=== PATIENT | male | born 1975 | race Caucasian/White ===

== ENCOUNTER 2018-05-02 20:49 | Observation (INO) ==
--- NOTE | 2018-05-02 21:33 | Emergency Department Note ---
Disposition Clinical Impression: Periorbital cellulitis Qualifiers: Laterality: right Qualified Code(s): L03.213 - Periorbital cellulitis Disposition: Still a Patient Condition: Good Referrals: NONE,PCP [Primary Care Provider] - Forms: ED Satisfaction Letter Time of Disposition: 22:43 Eye Problem HPI - General Chief complaint: ED Eye Problems Stated complaint: R Eye Irritation Time Seen by Provider: 05/02/18 21:00 Source: patient Mode of arrival: ambulatory Limitations: no limitations Nursing Notes Reviewed: Yes Vital Signs Reviewed: Yes - History of Present Illness HPI Narrative: I have re-performed and reviewed the history documented by the medical student, and I confirm its accuracy except as noted below - Related Data Previous Rx's Medication Instructions Recorded Gentamicin OPTH Soln 1 drop LEFT EYE QID #1 bottle 09/01/16 HYDROcodone/Acet 5/325 mg [[place] 1 tab PO Q6H PRN #14 tab 09/01/16 5-325 mg] Mupirocin [Bactroban Oint] 22 gm TP TID #1 tube 02/25/18 Allergies Allergy/AdvReac Type Severity Reaction Status Date / Time No Known Allergies Allergy Verified 02/25/18 17:58 All systems ED: reviewed and negative except as stated. Constitutional: Denies: fever Eyes: Reports: eye pain Cardiovascular: Denies: chest pain, palpitations Respiratory: Denies: cough, dyspnea Gastrointestinal: Denies: abdominal pain, nausea, vomiting, diarrhea Integumentary: Reports: lesions Neurological: Denies: headache, weakness, numbness, paresthesias Past Medical History - Past Medical History Attestation: Yes The following information was validated with the patient. Source: patient Medical history: Reports: hypertension Psychiatric history: Reports: anxiety - Social History Smoking Status: Current every day smoker Smokeless Tobacco Status: No Alcohol use: Reports: none, occasionally Drug use: Reports: none, IV Drug Use Physical Exam - General Limitations: no limitations General appearance: alert - Head Head exam: atraumatic, normocephalic, normal inspection - Eye Eye exam: Present: PERRL, EOMI, other (Right periorbital edema with central on the medial aspect of the right infraorbital region with about 1 cm diameter induration, fluctuance edema of the lateral infraorbital region. Mild swelling of the upper eyelid. No pain with ocular movement.) - ENT ENT exam: normal exam, normal oropharynx, mucous membranes moist - Neck Neck exam: Present: normal inspection, full ROM, trachea midline. Absent: tenderness - Chest Chest inspection: Present: normal inspection, symmetric chest wall rise - Respiratory Respiratory exam: Present: normal lung sounds bilaterally - Cardiovascular Cardiovascular exam: Present: regular rate, normal rhythm, normal heart sounds - Abdominal Exam Abdominal exam: Present: soft, Non-Tender. Absent: tenderness, distention, guarding, rebound, rigidity - Extremities Exam Extremities exam: Present: full ROM, other (Small 4-5 mm open lesion 6 of the left posterior wrist. No active bleeding or pus drainage. No localized fluctuance or induration.). Absent: tenderness, pedal edema - Neurological Exam Neurological exam: Present: alert, oriented X3, CN II-XII intact. Absent: motor sensory deficit - Psychiatric Psychiatric exam: Present: normal affect, normal mood - Skin Skin exam: Present: warm, dry, intact, normal color Course Course Narrative: We will obtain CT maxillofacial with contrast for further assessment, CBC, BMP, lactic. After results, we will consult ENT for further care and dispo. Vancomycin was started. 22:43 Will sign out patient tonight team for further care and disposition. Pending BMP and CT scan at this time. Vital Signs Temperature 98.3 F 05/02/18 20:50 Pulse Rate 91 05/02/18 20:50 Respiratory Rate 20 05/02/18 20:50 Blood Pressure 137/90 05/02/18 20:50 O2 Sat by Pulse Oximetry 98 05/02/18 20:50 Temperature 98.3 F 05/02/18 21:05 Pulse Rate 91 05/02/18 21:05 Respiratory Rate 20 05/02/18 21:05 Blood Pressure 137/90 05/02/18 21:05 O2 Sat by Pulse Oximetry 98 05/02/18 21:05 Oxygen Delivery Oxygen Delivery Room [facility] - [facility] Narrative Medical decision making narrative: We will obtain CT maxillofacial with contrast for further assessment, CBC, BMP, lactic. After results, we will consult ENT for further care and dispo. Vancomycin was started. 22:43 Will sign out patient tonight team for further care and disposition. Pending BMP and CT scan at this time. - Medical Records Medical records reviewed: Yes I reviewed the patient's medical records. - Lab Data Lab results reviewed: Yes I reviewed the patient's lab results. Result diagrams: 05/02/18 21:20 Lab Results 05/02/18 05/02/18 Range/Units 21:20 22:04 WBC 11.9 H (4.3-11.1) K/mcL RBC 3.98 L (4.19-5.50) M/mcL Hgb 12.0 L (12.9-16.9) g/dL Hct 36.1 L (37.5-50.1) % MCV 90.7 (83.0-100.0) fL MCH 30.2 (28.0-33.3) pg MCHC 33.2 (31.6-35.5) g/dL RDW 13.8 (11.5-14.5) % Plt Count 299 (140-400) K/mcL MPV 10.3 (9.4-12.4) fL Immature Gran % 0.6 (0-4) % Seg Neutrophils % 61.6 % Lymphocytes % 25.3 % Monocytes % 10.4 % Eosinophils % 1.9 % Basophils % 0.2 % Neutrophils # 7.3 (1.6-8.9) K/mcL Lymphocytes # 3.0 (0.6-4.6) K/mcL Monocytes # 1.2 (0.0-1.3) K/mcL Eosinophils # 0.2 (0.0-0.6) K/mcL Basophils # 0.0 (0.0-0.2) K/mcL Lactic Acid 1.0 (0.5-2.2) mmol/L S.B.A.R. - S.B.A.R. Situation: Demographics, MOA Background: Presenting Complaint, Relevant PMH, Meds, & Allergies Assessment: Vital Signs, Course and respsone to treatment, Exam Concerns, Patient/Family Expectation, Pertinant Lab Results, Outstanding Labs Recommendation: Barrier(s) to disposition, Recommendation based on pending studies, treatments, or consults S.B.A.R. Report Given to: Dr Banda, Dr. Mccormack
[2018-05-02] MEDS ORDERED: Isovue-370 500 ML INFUS..BTL IV ONE (21:39)
--- NOTE | 2018-05-02 21:46 | Emergency Department Note ---
Disposition Clinical Impression: Periorbital cellulitis Disposition: Still a Patient Referrals: NONE,PCP [Primary Care Provider] - Forms: ED Satisfaction Letter Eye Problem HPI - General Chief complaint: ED Eye Problems Stated complaint: R Eye Irritation Time Seen by Provider: 05/02/18 21:00 Source: patient Mode of arrival: ambulatory Limitations: no limitations - History of Present Illness HPI Narrative: 42yo male with history of HTN and IDRU presents with R cheek and eye swelling. Pt states yesterday he had a small pimple that he popped and yellow pus came out. Today when he awoke, noted some swelling but in the last few hours it had gradually gotten worse. It is painful around his cheek but no pain within the eye. No pain with movement and no drainage today. 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 He proceed to shave his wrists which then produced more "pimples" in which he popped and contributed to more open wounds. No history of MRSA or abscess. Denies recent IVDU, completed rehab in the past. Denies nausea, vomiting, fevers, chills. - Related Data Previous Rx's Medication Instructions Recorded Gentamicin OPTH Soln 1 drop LEFT EYE QID #1 bottle 09/01/16 HYDROcodone/Acet 5/325 mg [[place] 1 tab PO Q6H PRN #14 tab 09/01/16 5-325 mg] Mupirocin [Bactroban Oint] 22 gm TP TID #1 tube 02/25/18 Allergies Allergy/AdvReac Type Severity Reaction Status Date / Time No Known Allergies Allergy Verified 02/25/18 17:58 Review of Systems: As Per HPI Constitutional: Denies: fever, chills Eyes: Reports: eye pain (cheek pain, no pain within the eye). Denies: vision change Gastrointestinal: Denies: abdominal pain, nausea, vomiting Genitourinary: Denies: urgency, dysuria, frequency Allergic/Immunologic: Reports: facial swelling Past Medical History - Past Medical History Medical history: Reports: hypertension Psychiatric history: Reports: anxiety - Social History Smoking Status: Current every day smoker Smokeless Tobacco Status: No Alcohol use: Reports: none, occasionally Drug use: Reports: none, IV Drug Use Physical Exam - General Limitations: no limitations General appearance: alert - Head Head exam: atraumatic, normocephalic - Eye Eye exam: Present: periorbital swelling (preseptal.), periorbital tenderness, other (swelling and induration over R cheack. small area of erythema where "pimple" was. Not draining) - Respiratory Respiratory exam: Present: normal lung sounds bilaterally. Absent: respiratory distress - Cardiovascular Cardiovascular exam: Absent: regular rate, normal rhythm, normal heart sounds - Abdominal Exam Abdominal exam: Present: soft, Non-Tender - Extremities Exam Extremities exam: Present: other (5-6 less than 1cm open wounds to L wrist. No absess or drainage) - Neurological Exam Neurological exam: Present: alert, oriented X3 - Psychiatric Psychiatric exam: Present: normal affect, normal mood - Skin Skin exam: Present: warm, dry Course Course Narrative: After examining patient, the area of swelling was thought to be in close proximity to the triangle of doom in the face. A CT scan was performed to examiine more and to see the extent of the wound and its drainage. Labs were drawn. Vital Signs Temperature 98.3 F 05/02/18 20:50 Pulse Rate 91 05/02/18 20:50 Respiratory Rate 20 05/02/18 20:50 Blood Pressure 137/90 05/02/18 20:50 O2 Sat by Pulse Oximetry 98 05/02/18 20:50 Temperature 98.3 F 05/02/18 21:05 Pulse Rate 91 05/02/18 21:05 Respiratory Rate 20 05/02/18 21:05 Blood Pressure 137/90 05/02/18 21:05 O2 Sat by Pulse Oximetry 98 05/02/18 21:05 Oxygen Delivery Oxygen Delivery Room Air Eye - Lab Data Result diagrams: 05/02/18 21:20 Lab Results 05/02/18 05/02/18 Range/Units 21:20 22:04 WBC 11.9 H (4.3-11.1) K/mcL RBC 3.98 L (4.19-5.50) M/mcL Hgb 12.0 L (12.9-16.9) g/dL Hct 36.1 L (37.5-50.1) % MCV 90.7 (83.0-100.0) fL MCH 30.2 (28.0-33.3) pg MCHC 33.2 (31.6-35.5) g/dL RDW 13.8 (11.5-14.5) % Plt Count 299 (140-400) K/mcL MPV 10.3 (9.4-12.4) fL Immature Gran % 0.6 (0-4) % Seg Neutrophils % 61.6 % Lymphocytes % 25.3 % Monocytes % 10.4 % Eosinophils % 1.9 % Basophils % 0.2 % Neutrophils # 7.3 (1.6-8.9) K/mcL Lymphocytes # 3.0 (0.6-4.6) K/mcL Monocytes # 1.2 (0.0-1.3) K/mcL Eosinophils # 0.2 (0.0-0.6) K/mcL Basophils # 0.0 (0.0-0.2) K/mcL Lactic Acid 1.0 (0.5-2.2) mmol/L
[2018-05-02 21:55] LABS: Basophils % 0.2 %; Eosinophils # 0.2 K/mcL (0.0-0.6); Eosinophils % 1.9 %; Hematocrit 36.1 % (37.5-50.1); Immature Granulocytes % 0.6 % (0-4); Lymphocytes % 25.3 %; Mean Corpuscular HGB Conc 33.2 g/dL (31.6-35.5); Mean Corpuscular Hemoglobin 30.2 pg (28.0-33.3); Mean Corpuscular Volume 90.7 fL (83.0-100.0); Mean Platelet Volume 10.3 fL (9.4-12.4); Monocytes # 1.2 K/mcL (0.0-1.3); Monocytes % 10.4 %; Neutrophils # 7.3 K/mcL (1.6-8.9); Platelet Count 299 K/mcL (140-400); Red Blood Count 3.98 M/mcL (4.19-5.50); Red Cell Distribution Width 13.8 % (11.5-14.5); Segmented Neutrophils % 61.6 %
[2018-05-02 22:58] LABS: BUN/Creatinine Ratio 25 (6-26); Blood Urea Nitrogen 16 mg/dL (6-20); Calcium 8.7 mg/dL (8.6-10.3); Carbon Dioxide 27 mEq/L (23-29); Chloride 103 mEq/L (98-107); Glucose 138 mg/dL (70-105); Osmolality,Calculated 285 (280-300); Potassium 3.7 mEq/L (3.5-5.1); Sodium 136 mEq/L (136-145); eGFR For Non-African Americans > 60 (> 60)
[2018-05-03] MEDS ORDERED: Ondansetron 4 MG/2 ML VIAL IVP ONE (00:54)
[2018-05-03] MEDS ORDERED: *HR* FentaNYL (PF) 100 MCG/2 ML VIAL IVP ONE (00:54)
--- NOTE | 2018-05-03 00:56 | Emergency Department Note ---
Disposition Clinical Impression: Facial cellulitis Periorbital cellulitis Qualifiers: Laterality: right Qualified Code(s): L03.213 - Periorbital cellulitis Acute sinusitis Qualifiers: Sinusitis location: maxillary Recurrence: not specified as recurrent Qualified Code(s): J01.00 - Acute maxillary sinusitis, unspecified Disposition: Admitted As Inpatient Condition: Good Referrals: NONE,PCP [Primary Care Provider] - Forms: ED Satisfaction Letter General Adult HPI - General Chief complaint: ED Eye Problems Stated complaint: R Eye Irritation Time Seen by Provider: 05/02/18 21:00 Source: patient Mode of arrival: ambulatory Limitations: no limitations Nursing Notes Reviewed: Yes Vital Signs Reviewed: Yes - History of Present Illness Pain Scale: 0 - Related Data Previous Rx's Medication Instructions Recorded Gentamicin OPTH Soln 1 drop LEFT EYE QID #1 bottle 09/01/16 HYDROcodone/Acet 5/325 mg [[place] 1 tab PO Q6H PRN #14 tab 09/01/16 5-325 mg] Mupirocin [Bactroban Oint] 22 gm TP TID #1 tube 02/25/18 Allergies Allergy/AdvReac Type Severity Reaction Status Date / Time No Known Allergies Allergy Verified 02/25/18 17:58 Constitutional: Denies: fever Eyes: Reports: eye pain Cardiovascular: Denies: chest pain, palpitations Respiratory: Denies: cough, dyspnea Gastrointestinal: Denies: abdominal pain, nausea, vomiting, diarrhea Genitourinary: Denies: urgency, dysuria, frequency Integumentary: Reports: lesions Neurological: Denies: headache, weakness, numbness, paresthesias Allergic/Immunologic: Reports: facial swelling Past Medical History - Past Medical History Medical history: Reports: hypertension Psychiatric history: Reports: anxiety - Social History Smoking Status: Current every day smoker Smokeless Tobacco Status: No Alcohol use: Reports: none, occasionally Drug use: Reports: none, IV Drug Use Physical Exam - General Limitations: no limitations General appearance: alert Course Vital Signs Temperature 98.3 F 05/02/18 20:50 Pulse Rate 91 05/02/18 20:50 Respiratory Rate 20 05/02/18 20:50 Blood Pressure 137/90 05/02/18 20:50 O2 Sat by Pulse Oximetry 98 05/02/18 20:50 Temperature 98.3 F 05/02/18 21:05 Pulse Rate 84 05/03/18 01:17 Respiratory Rate 18 05/03/18 01:17 Blood Pressure 140/101 05/03/18 01:17 O2 Sat by Pulse Oximetry 98 05/03/18 01:17 Oxygen Delivery Oxygen Delivery Room Air Medical Decision Making - Medical Records Medical records reviewed: Yes I reviewed the patient's medical records. - Lab Data Lab results reviewed: Yes I reviewed the patient's lab results. Result diagrams: 05/02/18 21:20 05/02/18 21:20 Lab Results 05/02/18 05/02/18 05/02/18 Range/Units 21:20 21:20 22:04 WBC 11.9 H (4.3-11.1) K/mcL RBC 3.98 L (4.19-5.50) M/mcL Hgb 12.0 L (12.9-16.9) g/dL Hct 36.1 L (37.5-50.1) % MCV 90.7 (83.0-100.0) fL MCH 30.2 (28.0-33.3) pg MCHC 33.2 (31.6-35.5) g/dL RDW 13.8 (11.5-14.5) % Plt Count 299 (140-400) K/mcL MPV 10.3 (9.4-12.4) fL Immature Gran % 0.6 (0-4) % Seg Neutrophils % 61.6 % Lymphocytes % 25.3 % Monocytes % 10.4 % Eosinophils % 1.9 % Basophils % 0.2 % Neutrophils # 7.3 (1.6-8.9) K/mcL Lymphocytes # 3.0 (0.6-4.6) K/mcL Monocytes # 1.2 (0.0-1.3) K/mcL Eosinophils # 0.2 (0.0-0.6) K/mcL Basophils # 0.0 (0.0-0.2) K/mcL Sodium 136 (136-145) mEq/L Potassium 3.7 (3.5-5.1) mEq/L Chloride 103 (98-107) mEq/L Carbon Dioxide 27 (23-29) mEq/L BUN 16 (6-20) mg/dL Creatinine 0.63 L (0.70-1.30) mg/dL Est GFR ( Amer) > 60 (> 60) Est GFR (Non-Af Amer) > 60 (> 60) BUN/Creatinine Ratio 25 (6-26) Glucose 138 H (70-105) mg/dL Calculated Osmolality 285 (280-300) Lactic Acid 1.0 (0.5-2.2) mmol/L Calcium 8.7 (8.6-10.3) mg/dL - Radiology Data Radiology results reviewed: Yes I reviewed the patient's radiology results. Face CT 05/02/18 21:33 IMPRESSION: There is right facial and right greater than left periorbital soft tissue swelling consistent with cellulitis. There is no drainable fluid collection/abscess. Right maxillary sinus disease is likely both acute and chronic. Air-fluid level in the left maxillary sinus consistent with acute sinusitis. A single tooth remains in the anterior maxilla. Periapical lucency suggests a periapical abscess. D/ / Paul Thomason MD / Paul Thomason MD Interpreting Provider: Paul Thomason MD Attestation Statement - Attestation Attestation: I, Luis Enrique Banda MD, personally evaluated this patient and discussed their management with the resident physician. I reviewed the resident's note and agree with the documented findings, medical decision making, and plan of care. This patient was signed out at shift change from Dr. Murry and Dr. Brantlye. Please refer to their notes for complete details of the history and physical examination. At shift change patient is awaiting a CT of the face. He presented with right facial pain and swelling and erythema which started about 1 day prior to arrival. On examination patient is a well-developed well-nourished male in no acute distress. He is alert and oriented 3. There is no cyanosis or diaphoresis. Patient does have right periorbital edema and erythema with swelling and erythema of the right cheek. Neck is supple and nontender with no lymphadenopathy. Breath sounds are clear and equal bilaterally. Heart regular rate and rhythm. Labs reviewed. CT showed right facial cellulitis and bilateral maxillary sinusitis. No drainable abscess. The hospitalist, Dr. Manrique, was consulted and accepted admission of the patient.
--- NOTE | 2018-05-03 01:19 | Emergency Department Note ---
Disposition Clinical Impression: Periorbital cellulitis Qualifiers: Laterality: right Qualified Code(s): L03.213 - Periorbital cellulitis Disposition: Admitted As Inpatient Condition: Good Referrals: NONE,PCP [Primary Care Provider] - Forms: ED Satisfaction Letter Time of Disposition: 01:19 General Adult HPI - General Chief complaint: ED Eye Problems Stated complaint: R Eye Irritation Time Seen by Provider: 05/02/18 21:00 Source: patient Mode of arrival: ambulatory Limitations: no limitations Nursing Notes Reviewed: Yes Vital Signs Reviewed: Yes - History of Present Illness HPI Narrative: Patient received on sign out from Dr. Brantley and Dr. Murry. Please see their note for complete history and physical. CT pending at time of signout. In brief: Patient has right eye cellulitis profound such that his eyes nearly swollen shut. This is been progressive however began as a zit that he popped. Pain Scale: 0 - Related Data Previous Rx's Medication Instructions Recorded Gentamicin OPTH Soln 1 drop LEFT EYE QID #1 bottle 09/01/16 HYDROcodone/Acet 5/325 mg [[place] 1 tab PO Q6H PRN #14 tab 09/01/16 5-325 mg] Mupirocin [Bactroban Oint] 22 gm TP TID #1 tube 02/25/18 Allergies Allergy/AdvReac Type Severity Reaction Status Date / Time No Known Allergies Allergy Verified 02/25/18 17:58 Constitutional: Denies: fever Eyes: Reports: eye pain Cardiovascular: Denies: chest pain, palpitations Respiratory: Denies: cough, dyspnea Gastrointestinal: Denies: abdominal pain, nausea, vomiting, diarrhea Genitourinary: Denies: urgency, dysuria, frequency Integumentary: Reports: lesions Neurological: Denies: headache, weakness, numbness, paresthesias Allergic/Immunologic: Reports: facial swelling Past Medical History - Past Medical History Medical history: Reports: hypertension Psychiatric history: Reports: anxiety - Social History Smoking Status: Current every day smoker Smokeless Tobacco Status: No Alcohol use: Reports: none, occasionally Drug use: Reports: none, IV Drug Use Physical Exam - General Limitations: no limitations General appearance: alert Course Course Narrative: CT face shows right cellulitis, bilateral maxillary sinusitis. No abscess. Patient is received empirically clindamycin. Will add blood culture. Discussed the patient with having hospitalist, Dr. Manrique, who agrees to accept the patient for continued evaluation and management. Face CT 05/02/18 21:33 IMPRESSION: There is right facial and right greater than left periorbital soft tissue swelling consistent with cellulitis. There is no drainable fluid collection/abscess. Right maxillary sinus disease is likely both acute and chronic. Air-fluid level in the left maxillary sinus consistent with acute sinusitis. A single tooth remains in the anterior maxilla. Periapical lucency suggests a periapical abscess. D/ / Paul Thomason MD / Paul Thomason MD Interpreting Provider: Paul Thomason MD Vital Signs Temperature 98.3 F 05/02/18 20:50 Pulse Rate 91 05/02/18 20:50 Respiratory Rate 20 05/02/18 20:50 Blood Pressure 137/90 05/02/18 20:50 O2 Sat by Pulse Oximetry 98 05/02/18 20:50 Temperature 98.3 F 05/02/18 21:05 Pulse Rate 82 05/02/18 23:10 Respiratory Rate 18 05/02/18 23:10 Blood Pressure 138/93 05/02/18 23:10 O2 Sat by Pulse Oximetry 98 05/02/18 23:10 Oxygen Delivery Oxygen Delivery Room Air Medical Decision Making - Lab Data Result diagrams: 05/02/18 21:20 05/02/18 21:20 Lab Results 05/02/18 05/02/18 05/02/18 Range/Units 21:20 21:20 22:04 WBC 11.9 H (4.3-11.1) K/mcL RBC 3.98 L (4.19-5.50) M/mcL Hgb 12.0 L (12.9-16.9) g/dL Hct 36.1 L (37.5-50.1) % MCV 90.7 (83.0-100.0) fL MCH 30.2 (28.0-33.3) pg MCHC 33.2 (31.6-35.5) g/dL RDW 13.8 (11.5-14.5) % Plt Count 299 (140-400) K/mcL MPV 10.3 (9.4-12.4) fL Immature Gran % 0.6 (0-4) % Seg Neutrophils % 61.6 % Lymphocytes % 25.3 % Monocytes % 10.4 % Eosinophils % 1.9 % Basophils % 0.2 % Neutrophils # 7.3 (1.6-8.9) K/mcL Lymphocytes # 3.0 (0.6-4.6) K/mcL Monocytes # 1.2 (0.0-1.3) K/mcL Eosinophils # 0.2 (0.0-0.6) K/mcL Basophils # 0.0 (0.0-0.2) K/mcL Sodium 136 (136-145) mEq/L Potassium 3.7 (3.5-5.1) mEq/L Chloride 103 (98-107) mEq/L Carbon Dioxide 27 (23-29) mEq/L BUN 16 (6-20) mg/dL Creatinine 0.63 L (0.70-1.30) mg/dL Est GFR ( Amer) > 60 (> 60) Est GFR (Non-Af Amer) > 60 (> 60) BUN/Creatinine Ratio 25 (6-26) Glucose 138 H (70-105) mg/dL Calculated Osmolality 285 (280-300) Lactic Acid 1.0 (0.5-2.2) mmol/L Calcium 8.7 (8.6-10.3) mg/dL
[2018-05-03] MEDS ORDERED: Naloxone 0.4 MG/ML INJ IVP PRN (02:29)
[2018-05-03] MEDS ORDERED: Ibuprofen 400 MG TABLET PO PRN (02:29)
[2018-05-03] MEDS ORDERED: Ketorolac 15 MG/ML VIAL IVP ONE (02:40)
--- NOTE | 2018-05-03 02:45 | Internal Med History&Physical ---
Date of Encounter: 05/03/18 Time of Encounter: 02:42 Internal Medicine - H&P: HPI Chief complaint: eye swelling Admitted From: Home Plans for Post Hospital Care: Home History of present illness: Mr. Crowley is a 42 year old male with a history of hypertension but not currently on medications who presents to the ER due to eye swelling after popping "a zit" around his right eye on . On Saturday he woke up to eye swelling which progressed over the course of the day with a throbbing headache and ultimate occlusion of his ocular aperture. He has not been febrile but feels chills. On arrival, CT scan was done which confirmed periorbital cellulitis. He is admitted for ongoing management. Past Med Surg Social Fam HX - Past Medical History Medical history: hypertension Additional medical history: 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 - Social History Smoking Status: Current every day smoker Packs per day: 1 Smokeless Tobacco Status: No Alcohol use: none, occasionally Drug use: none - Family History Father Hx Family Cardiac Disorders: Yes (HTN) Internal Medicine - H&P: Meds amLODIPine [Norvasc] 5 mg PO DAILY 05/03/18 [History] 3 Allergy/AdvReac Type Severity Reaction Status Date / Time No Known Allergies Allergy Verified 02/25/18 17:58 All Systems PM: A 10-system review of systems was performed and is negative for pertinent findings except as documented above in the HPI. - Constitutional Vitals: Temp Pulse Resp BP Pulse Ox 98.3 F 84 18 121/84 98 05/02/18 21:05 05/03/18 01:17 05/03/18 02:16 05/03/18 02:16 05/03/18 01:17 Exam: Vitals: Reviewed General: Well developed, NAD Skin: Warm and supple. HEENT: Circumferential swelling around the right eye with erythema and tenderness to palpation and a subcentimeter sized punctum noted. Ocular movements are intact. Neck: No lymphadenopathy. No JVD. No carotid bruits. No palpable thyroid. Chest: Normal thoracic expansion. Normal breath sounds. Clear to auscultation. Heart: Normal S1 & S2; rhythmic. No rubs or murmurs. Abdomen: Non-distended, soft and non-tender to palpation. No peritoneal reaction. Liver is normal in size. Spleen is not palpable. Extremities: No clubbing, cyanosis or edema. No calf tenderness. Normal distal pulses. Neurological: Awake, alert and oriented to person, place and time. No focal deficits. Psych: Affect appropriate. Internal Med - H&P Results - Labs CBC & Chem 7: 05/02/18 21:20 05/02/18 21:20 - Assessment and plan (1) Periorbital cellulitis Current Visit: Yes Status: Acute Assessment and plan: Secondary to self-inflicted trauma. Will continue vancomycin q12hrs as dosed per pharmacy. Likely due to skin betina such as CA-MRSA and Strep species. Patient is not diabetic that would warrant escalation of therapy. IVF to continue. Qualifiers: Laterality: right Qualified Code(s): L03.213 - Periorbital cellulitis (2) Hypertension Current Visit: Yes Status: Chronic Assessment and plan: Has been off medications for years. Will place on amlodipine 5mg daily. Qualifiers: Hypertension type: essential hypertension Qualified Code(s): I10 - Essential (primary) hypertension (3) DVT prophylaxis Current Visit: Yes Status: Acute Assessment and plan: Heparin subQ indicated. (4) Tobacco dependence Current Visit: Yes Status: Chronic Assessment and plan: Counseling on his smoking habit was given. - Time Spent With Patient Total time spent is greater than 50% in coordination of care (as documented) at patient's floor/unit and/or counseling patient: 25 - 35 minutes
[2018-05-03 03:58] LABS: Basophils % 0.2 %; Eosinophils # 0.2 K/mcL (0.0-0.6); Eosinophils % 1.7 %; Hematocrit 34.2 % (37.5-50.1); Hemoglobin 11.4 g/dL (12.9-16.9); Immature Granulocytes % 0.5 % (0-4); Lymphocytes # 2.9 K/mcL (0.6-4.6); Lymphocytes % 24.8 %; Mean Corpuscular HGB Conc 33.3 g/dL (31.6-35.5); Mean Corpuscular Hemoglobin 30.1 pg (28.0-33.3); Mean Corpuscular Volume 90.2 fL (83.0-100.0); Mean Platelet Volume 10.1 fL (9.4-12.4); Monocytes # 1.2 K/mcL (0.0-1.3); Monocytes % 10.2 %; Neutrophils # 7.4 K/mcL (1.6-8.9); Platelet Count 279 K/mcL (140-400); Red Blood Count 3.79 M/mcL (4.19-5.50); Red Cell Distribution Width 13.8 % (11.5-14.5); Segmented Neutrophils % 62.6 %
[2018-05-03] MEDS: Ringers Solution, Lactated 1,000 ML IVC SCH ×2 (04:04→14:05)
[2018-05-03 04:05] LABS: BUN/Creatinine Ratio 20 (6-26); Blood Urea Nitrogen 12 mg/dL (6-20); Calcium 8.5 mg/dL (8.6-10.3); Carbon Dioxide 28 mEq/L (23-29); Chloride 103 mEq/L (98-107); Glucose 105 mg/dL (70-105); Osmolality,Calculated 280 (280-300); Potassium 3.9 mEq/L (3.5-5.1); Sodium 135 mEq/L (136-145); eGFR For Non-African Americans > 60 (> 60)
[2018-05-03] MEDS: *HR* Heparin 5,000 UNIT/ML VIAL SQ SCH ×3 (06:05→20:54)
[2018-05-03] MEDS: *HR* OxyCODONE Immed Rel 5 MG TABLET PO PRN ×3 (06:09→20:56)
[2018-05-03] MEDS: amLODIPine 5 MG TABLET PO SCH (07:57)
[2018-05-03] MEDS: traMADol 50 MG TABLET PO PRN ×2 (09:02→18:10)
[2018-05-03 10:43] LABS: Basophils % 0.2 %; Eosinophils # 0.2 K/mcL (0.0-0.6); Hematocrit 36.2 % (37.5-50.1); Immature Granulocytes % 0.6 % (0-4); Lymphocytes # 3.1 K/mcL (0.6-4.6); Lymphocytes % 27.5 %; Mean Corpuscular HGB Conc 33.1 g/dL (31.6-35.5); Mean Corpuscular Hemoglobin 29.9 pg (28.0-33.3); Mean Corpuscular Volume 90.3 fL (83.0-100.0); Mean Platelet Volume 9.8 fL (9.4-12.4); Monocytes # 1.3 K/mcL (0.0-1.3); Monocytes % 11.7 %; Neutrophils # 6.5 K/mcL (1.6-8.9); Platelet Count 288 K/mcL (140-400); Red Blood Count 4.01 M/mcL (4.19-5.50); Red Cell Distribution Width 13.8 % (11.5-14.5)
--- NOTE | 2018-05-03 10:46 | Event Note ---
Date of Encounter: 05/03/18 Time of Encounter: 10:44 Patient seen and examined earlier this am by hospitalist Currently his R eye con tto be swollen, denies any headache, he is unable to see dt swelling He is requesting nicotine patch . Cont with ATMariano tx
[2018-05-03] MEDS: Nicotine 14 MG PATCH.TD24 TD SCH (14:03)
[2018-05-03 19:35] LABS: Basophils % 0.3 %; Eosinophils # 0.2 K/mcL (0.0-0.6); Eosinophils % 1.8 %; Hematocrit 34.7 % (37.5-50.1); Hemoglobin 11.5 g/dL (12.9-16.9); Immature Granulocytes % 0.7 % (0-4); Mean Corpuscular HGB Conc 33.1 g/dL (31.6-35.5); Mean Corpuscular Hemoglobin 30.1 pg (28.0-33.3); Mean Corpuscular Volume 90.8 fL (83.0-100.0); Mean Platelet Volume 10.2 fL (9.4-12.4); Monocytes # 0.8 K/mcL (0.0-1.3); Monocytes % 7.8 %; Neutrophils # 7.4 K/mcL (1.6-8.9); Platelet Count 275 K/mcL (140-400); Red Blood Count 3.82 M/mcL (4.19-5.50); Red Cell Distribution Width 13.8 % (11.5-14.5); Segmented Neutrophils % 70.4 %
[2018-05-04] MEDS: *HR* OxyCODONE Immed Rel 5 MG TABLET PO PRN ×2 (03:00→14:52)
[2018-05-04] MEDS: *HR* Heparin 5,000 UNIT/ML VIAL SQ SCH ×2 (05:20→14:51)
[2018-05-04 08:54] LABS: Basophils % 0.4 %; Eosinophils # 0.2 K/mcL (0.0-0.6); Hematocrit 36.4 % (37.5-50.1); Immature Granulocytes % 0.5 % (0-4); Lymphocytes # 2.6 K/mcL (0.6-4.6); Mean Corpuscular Hemoglobin 29.3 pg (28.0-33.3); Mean Corpuscular Volume 88.8 fL (83.0-100.0); Mean Platelet Volume 10.1 fL (9.4-12.4); Monocytes % 8.5 %; Neutrophils # 7.4 K/mcL (1.6-8.9); Platelet Count 311 K/mcL (140-400); Red Cell Distribution Width 13.6 % (11.5-14.5); Segmented Neutrophils % 65.6 %
[2018-05-04 09:19] LABS: BUN/Creatinine Ratio 14 (6-26); Blood Urea Nitrogen 10 mg/dL (6-20); Calcium 9.1 mg/dL (8.6-10.3); Carbon Dioxide 30 mEq/L (23-29); Chloride 103 mEq/L (98-107); Glucose 94 mg/dL (70-105); Osmolality,Calculated 285 (280-300); Potassium 4.1 mEq/L (3.5-5.1); Sodium 138 mEq/L (136-145); eGFR For Non-African Americans > 60 (> 60)
[2018-05-04] MEDS: amLODIPine 5 MG TABLET PO SCH (09:44)
[2018-05-04] MEDS: Nicotine 14 MG PATCH.TD24 TD SCH (09:44)
--- NOTE | 2018-05-04 14:02 | Internal Med Progress Note ---
Hospitalist Progress Note - Encounter Date of Encounter: 05/04/18 Time of Encounter: 14:00 - Subjective Interval History: Patient seen and examined at bedside- He does complain of nicotine craving- he has gone off the floor to smoke I have advised the patient not madeleine leave the floor and that I would increase his patch. Swelling has significantly improved and patient is able to open his eye. - Exam Vitals: Temp Pulse Resp BP Pulse Ox 98.0 F 86 16 144/79 96 05/04/18 11:21 05/04/18 11:21 05/04/18 11:21 05/04/18 11:21 05/04/18 11:21 Exam: Vitals: Reviewed General: Well developed, NAD Skin: Warm and supple. HEENT: Circumferential swelling around the right eye with erythema and tenderness to palpation and a subcentimeter sized punctum noted. Ocular movements are intact. Neck: No lymphadenopathy. No JVD. No carotid bruits. No palpable thyroid. Chest: Normal thoracic expansion. Normal breath sounds. Clear to auscultation. Heart: Normal S1 & S2; rhythmic. No rubs or murmurs. Abdomen: Non-distended, soft and non-tender to palpation. No peritoneal reaction. Liver is normal in size. Spleen is not palpable. Extremities: No clubbing, cyanosis or edema. No calf tenderness. Normal distal pulses. Neurological: Awake, alert and oriented to person, place and time. No focal deficits. Psych: Affect appropriate. - Assessment and Plan (1) Periorbital cellulitis Current Visit: Yes Status: Acute Assessment and Plan: Secondary to self-inflicted trauma. Will continue vancomycin q12hrs as dosed per pharmacy. Likely due to skin betina such as CA-MRSA and Strep species. Patient is not diabetic that would warrant escalation of therapy. IVF to continue. consult to ENT for possible I/D (2) Hypertension Current Visit: Yes Status: Chronic Assessment and Plan: Has been off medications for years. Currently stable we will cont amlodipine 5mg daily. (3) DVT prophylaxis Current Visit: Yes Status: Acute Assessment and Plan: Heparin subQ indicated. (4) Tobacco dependence Current Visit: Yes Status: Chronic Assessment and Plan: Counseling on his smoking habit was given. we will increase nicotine patch Patient is leaving floor to smoke - Time Spent with Patient Total time spent is greater than 50% in coordination of care (as documented) at patient's floor/unit and/or counseling patient: Internal Medicine: Result - Labs CBC & Chem 7: 05/04/18 08:12 05/04/18 08:12 Labs: Short CBC 05/03/18 05/04/18 Range/Units 19:08 08:12 WBC 10.5 11.3 H (4.3-11.1) K/mcL Hgb 11.5 L 12.0 L (12.9-16.9) g/dL Hct 34.7 L 36.4 L (37.5-50.1) % Plt Count 275 311 (140-400) K/mcL Neutrophils # 7.4 7.4 (1.6-8.9) K/mcL BMP 05/04/18 08:12 Sodium 138 Potassium 4.1 Chloride 103 Carbon Dioxide 30 H BUN 10 Creatinine 0.74 Glucose 94 Calcium 9.1 Consult Discharge Plan - Plan Referrals: NONE,PCP [Primary Care Provider] - (1) Periorbital cellulitis Qualifiers: Laterality: right Qualified Code(s): L03.213 - Periorbital cellulitis (2) Hypertension Qualifiers: Hypertension type: essential hypertension Qualified Code(s): I10 - Essential (primary) hypertension
[2018-05-04] MEDS ORDERED: Nicotine 21 MG PATCH.TD24 TD SCH (14:15)
--- NOTE | 2018-05-04 15:35 | ENT - Consult Note ---
Date of Encounter: 05/04/18 Time of Encounter: 03:15 Assessment and Plan (1) Facial abscess Current Visit: Yes Status: Acute White male with right facial abscess for incision and drainage the face was prepped and draped incision pressing on the lesion to extrude pus opening the wound slightly and placing some packing out suture a Band-Aid was applied please note no anesthetic was used but the patient tolerated the procedure remarkably well and it was minimally invasive recommending continued antibiotics heat do not remove the Band-Aid and follow-up in office in 2 days for reevaluation removal of which if still present if the which comes out in the interim recommended he uses a Q-tip to keep the opening open (2) Facial abscess Current Visit: Yes Status: Acute History of Present Illness Consult date: 05/04/18 Reason for ENT Consult: other (facial abcess) History of present illness: White male with several days of facial abscess with cellulitis treated with IV antibiotics previous CT on 817 no evidence of abscess today's apparent that he has a small abscess cavity in the right lateral nasal cheek region patient is making good improvement but needs a small incision and drainage done Past Med Surg Social Fam HX - Past Medical History Medical history: hypertension Additional medical history: 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 - Social History Smoking Status: Current every day smoker Packs per day: 1 Smokeless Tobacco Status: No Alcohol use: none, occasionally Drug use: none - Family History Father Hx Family Cardiac Disorders: Yes (HTN) Medications and Allergies amLODIPine [Norvasc] 5 mg PO DAILY 05/03/18 [History] 3 Allergy/AdvReac Type Severity Reaction Status Date / Time No Known Allergies Allergy Verified 05/03/18 13:42 ENT Exam Initial Vital Signs Temp Pulse Resp BP Pulse Ox 98.3 F 91 20 137/90 98 05/02/18 20:50 05/02/18 20:50 05/02/18 20:50 05/02/18 20:50 05/02/18 20:50 - General physical appearance well developed, well nourished, no distress, no pain. negative: moderate distress, severe distress, moderate pain, severe pain, cachectic, obese - Eyes PERRL, normal ocular movement, icteric - ENT normal pinna, normal nares, normal mucosa, no hearing loss, no congestion, Other (Right cheek swelling with 5 mm of projection of the face related to underlying abscess cavity this was drained). negative: decreased hearing, deviated nasal septum, nasal discharge, poor mcc, dentures, mucosal exudate, dry mucosa - Neck no masses, trachea midline, no lymphadectomy. negative: deviated trachea, diffuse goiter, limited ROM - Respiratory normal expansion, normal respiratory effort, clear to percussion, clear to auscultation - Abdomen Abdomen: soft, non tender, bowel sounds, no tender, no surgical scars - Integumentary no rash, no growths, no abnormal pigmentation - Neurologic normal coordination, normal sensation - Musculoskeletal normal gait, normal posture - Psychiatric oriented to time, oriented to person, oriented to place, speech is normal, memory intact Exam Initial Vital Signs Temp Pulse Resp BP Pulse Ox 98.3 F 91 20 137/90 98 05/02/18 20:50 05/02/18 20:50 05/02/18 20:50 05/02/18 20:50 05/02/18 20:50 Results - Labs 05/04/18 08:12 05/04/18 08:12 Abnormal lab results WBC 11.3 K/mcL (4.3-11.1) H 05/04/18 08:12 RBC 4.10 M/mcL (4.19-5.50) L 05/04/18 08:12 Hgb 12.0 g/dL (12.9-16.9) L 05/04/18 08:12 Hct 36.4 % (37.5-50.1) L 05/04/18 08:12 Carbon Dioxide 30 mEq/L (23-29) H 05/04/18 08:12 Diabetes panel 05/04/18 Range/Units 08:12 Sodium 138 (136-145) mEq/L Potassium 4.1 (3.5-5.1) mEq/L Chloride 103 (98-107) mEq/L Carbon Dioxide 30 H (23-29) mEq/L BUN 10 (6-20) mg/dL Creatinine 0.74 (0.70-1.30) mg/dL Glucose 94 (70-105) mg/dL Calcium 9.1 (8.6-10.3) mg/dL Calcium panel 05/04/18 Range/Units 08:12 Calcium 9.1 (8.6-10.3) mg/dL Pituitary panel 05/04/18 Range/Units 08:12 Sodium 138 (136-145) mEq/L Potassium 4.1 (3.5-5.1) mEq/L Chloride 103 (98-107) mEq/L Carbon Dioxide 30 H (23-29) mEq/L BUN 10 (6-20) mg/dL Creatinine 0.74 (0.70-1.30) mg/dL Glucose 94 (70-105) mg/dL Calcium 9.1 (8.6-10.3) mg/dL Adrenal panel 05/04/18 Range/Units 08:12 Sodium 138 (136-145) mEq/L Potassium 4.1 (3.5-5.1) mEq/L Chloride 103 (98-107) mEq/L Carbon Dioxide 30 H (23-29) mEq/L BUN 10 (6-20) mg/dL Creatinine 0.74 (0.70-1.30) mg/dL Glucose 94 (70-105) mg/dL Calcium 9.1 (8.6-10.3) mg/dL All other labs normal. Consult Discharge Plan - Plan Referrals: NONE,PCP [Primary Care Provider] -
[2018-05-04 15:42] VITALS: BP 145/87
--- NOTE | 2018-05-04 17:07 | Discharge Summary ---
- NOTES TO OUTPATIENT PROVIDER Notes to Outpatient Provider: I/D of r facial abcess with cellulitis - follow up with ENT on bactrim Orders not resulted at time of discharge: Pending orders 05/05/18 04:00 CBC [Complete Blood Count] [HEME] AM 0400 Chem 7 [Basic Metabolic Panel] AM 0400 05/06/18 04:00 CBC [Complete Blood Count] [HEME] AM 0400 Chem 7 [Basic Metabolic Panel] AM 04005/07/18 04:00 CBC [Complete Blood Count] [HEME] AM 0400 Chem 7 [Basic Metabolic Panel] AM 0400 Date of Encounter: 05/04/18 Time of Encounter: 17:03 - Discharge Diagnosis (1) Periorbital cellulitis Priority: Primary Status: Acute Qualifiers: Laterality: right Qualified Code(s): L03.213 - Periorbital cellulitis (2) Hypertension Priority: Secondary Status: Chronic Qualifiers: Hypertension type: essential hypertension Qualified Code(s): I10 - Essential (primary) hypertension (3) Tobacco dependence Priority: Secondary Status: Chronic Hospital course: Mr. Crowley is a 42 year old male past medicl hx of HTN and IV drug use. He attempted to pop a "zit" near his eye on On Saturday he awoke with his eye swollen which worsened throughout the day He devloped a headache and was unable to open his eye . He was afebrile CT of face verified periorbital cellulitis. He is not a diabetic did not appear septic Blood culture obtained- he was started on Vancomycin. Facial swelling improved- noted a raised area r side of face next to nose with white center- ENT consulted I/D performed - advised to follow up with ENT in 2 days - He is afebrile - we will send home clindamycin follow up with ENT- Has not been taking BP meds at home BP stable here We will send home with script of amlodipine follow up with residency clinic Encourage t stop smoking gave script for nicotine patch He is hemodynamically stable and ready for discharge Discharge discussed with: patient - Time Spent with Patient Total time spent providing and/or coordinating discharge services: - Discharge Medications Prescriptions: Clindamycin [Cleocin] 150 mg PO Q6HR #28 capsule amLODIPine [Norvasc] 5 mg PO DAILY #30 tablet Nicotine Patch [Nicoderm] 21 mg TD DAILY #20 patch.td24 Home Medications: amLODIPine [Norvasc] 5 mg PO DAILY 05/03/18 [History] Clindamycin [Cleocin] 150 mg PO Q6HR #28 capsule 05/04/18 [Rx] Nicotine Patch [Nicoderm] 21 mg TD DAILY #20 patch.td24 05/04/18 [Rx] amLODIPine [Norvasc] 5 mg PO DAILY #30 tablet 05/04/18 [Rx] Allergies/Adverse Reactions: 3 Allergy/AdvReac Type Severity Reaction Status Date / Time No Known Allergies Allergy Verified 05/03/18 13:42 Date of admission: 05/03/18 05:25 Primary care physician: PCP NONE Consults: 05/04/18 14:04 Consult to ENT [CONS] Routine Consulting Provider: MILES Betancourt Reason for Consult: possible I/D of facial wound Time Notified: 14:06 Call Completed: Yes Discharging clinician: Karen Rose Anticipated date of discharge: 05/04/18 - Constitutional Vitals: Temp Pulse Resp BP Pulse Ox 98.2 F 108 16 145/87 98 05/04/18 15:40 05/04/18 15:40 05/04/18 15:40 05/04/18 15:40 05/04/18 15:40 - Patient Status Disposition: Home, Self-Care Condition: Good Functional capacity at discharge: independent ambulation - Discharge Instructions Follow Up With: [facility] [Outside] (Please call to schedule appointment with primary care physician.) Jeremiah Davis MD [Non-Partnered Physician] - - Diet and Activity Activity: resume usual activities as tolerated Diet: advance to your usual diet
[2018-05-04] MEDS ORDERED: Aminoglycoside Consult 1 EACH MC ONE (17:44)
== END 2018-05-04 17:45 | disposition home or self-care (01) ==
LOC: EMEROOARM 20:49 → 3BNU 20:49
PROVIDERS: ADMIT Internal Medicine; ATTEND Internal Medicine

== ENCOUNTER 2018-07-27 03:53 | Inpatient (IN) ==
[2018-07-27] MEDS ORDERED: Isovue-370 500 ML INFUS..BTL IV ONE (04:26)
--- NOTE | 2018-07-27 04:31 | Emergency Department Note ---
Disposition Clinical Impression: Facial abscess Disposition: Still a Patient Condition: Fair Referrals: NONE,PCP [Primary Care Provider] - Forms: ED Satisfaction Letter, Work/School Release Skin/Abscess/FB HPI Chief complaint: ED General Medical Stated complaint: Nose Swollen Time Seen by Provider: 07/27/18 03:56 Source: patient Limitations: no limitations Nursing Notes Reviewed: Yes Vital Signs Reviewed: Yes HPI Narrative: 42-year-old male with a history of facial cellulitis, picking skin behavior presents with nose swelling. Patient stated he felt some swelling of left side2 days ago. It is getting bigger today. No chills and a fever. Up to date TD vaccination. Denied a history of diabetes. Denied recently using any IV drugs. Pt Subjective Complaint: abscess/boil Onset (ago): day(s) (2) Tetanus Up to Date: yes Location: face Home Medications Medication Instructions Recorded Confirmed amLODIPine [Norvasc] 5 mg PO DAILY 05/03/18 05/03/18 Previous Rx's Medication Instructions Recorded Clindamycin [Cleocin] 150 mg PO Q6HR #28 capsule 05/04/18 Nicotine Patch [Nicoderm] 21 mg TD DAILY #20 patch.td24 05/04/18 amLODIPine [Norvasc] 5 mg PO DAILY #30 tablet 05/04/18 Allergies Allergy/AdvReac Type Severity Reaction Status Date / Time No Known Allergies Allergy Verified 05/03/18 13:42 Constitutional: Denies: fever Eyes: Denies: eye pain ENT ED: Reports: other (nose pain and swelling). Denies: ear pain Cardiovascular: Denies: chest pain Respiratory: Denies: cough Gastrointestinal: Denies: abdominal pain Genitourinary: Denies: urgency Musculoskeletal: Denies: back pain Integumentary: Reports: lesions. Denies: rash Neurological: Denies: headache Psychiatric: Denies: anxiety Endocrine: Denies: fatigue Hematological/Lymphatic: Denies: easy bleeding Allergic/Immunologic: Denies: facial swelling Past Medical History - Past Medical History Medical history: Reports: hypertension Psychiatric history: Reports: anxiety - Social History Smoking Status: Current every day smoker Smokeless Tobacco Status: No Alcohol use: Reports: none, occasionally Drug use: Reports: none Physical Exam - General Limitations: no limitations General appearance: alert, in no apparent distress - Head Head exam: atraumatic - Eye Eye exam: Present: other (a 1x1 abscess on media side left eyebrow) - ENT ENT exam: other (nose swelling, erythema, warmth and tender to palpation, a small opening in left side, purulent drainage noted) - Neck Neck exam: Present: normal inspection, full ROM, trachea midline - Chest Chest inspection: Present: normal inspection - Respiratory Respiratory exam: Present: normal lung sounds bilaterally - Cardiovascular Cardiovascular exam: Present: regular rate - Abdominal Exam Abdominal exam: Present: soft - Extremities Exam Extremities exam: Present: normal inspection - Back Exam Back exam: Present: normal inspection - Neurological Exam Neurological exam: Present: alert - Psychiatric Psychiatric exam: Present: normal affect - Skin Skin exam: Present: warm Course Vital Signs Temperature 98.1 F 07/27/18 03:58 Pulse Rate 98 07/27/18 03:58 Respiratory Rate 16 07/27/18 03:58 Blood Pressure 167/115 07/27/18 03:58 O2 Sat by Pulse Oximetry 100 07/27/18 03:58 Temperature 98.1 F 07/27/18 03:58 Pulse Rate 91 07/27/18 05:34 Respiratory Rate 15 07/27/18 05:34 Blood Pressure 149/89 07/27/18 05:34 O2 Sat by Pulse Oximetry 97 07/27/18 05:34 Oxygen Delivery Oxygen Delivery Room Air Skin/Abscess/Foreign Body - MDM Narrative Medical decision making narrative: 42 year old male presents for fast growing facial abscess on nose and media side left eyebrow for 2 days. Labs;white cell 13. facial CT with contrast pending. Pt is given iv fluids and antibiotics. Dr. Banda saw the patient. Pt most likely will be admit to hospital for IV antibiotics and ENT consult. Transfer care to Max Fraser PA-C due to shift change. - Lab Data Lab results reviewed: Yes I reviewed the patient's lab results. Result diagrams: 07/27/18 04:45 07/27/18 04:45 Lab Results 07/27/18 07/27/18 07/27/18 Range/Units 04:45 04:45 04:45 WBC 13.8 H (4.3-11.1) K/mcL RBC 4.12 L (4.19-5.50) M/mcL Hgb 12.0 L (12.9-16.9) g/dL Hct 36.1 L (37.5-50.1) % MCV 87.6 (83.0-100.0) fL MCH 29.1 (28.0-33.3) pg MCHC 33.2 (31.6-35.5) g/dL RDW 13.2 (11.5-14.5) % Plt Count 298 (140-400) K/mcL MPV 9.6 (9.4-12.4) fL Immature Gran % 0.4 (0-4) % Seg Neutrophils % 73.6 % Lymphocytes % 17.0 % Monocytes % 6.7 % Eosinophils % 2.1 % Basophils % 0.2 % Neutrophils # 10.2 H (1.6-8.9) K/mcL Lymphocytes # 2.4 (0.6-4.6) K/mcL Monocytes # 0.9 (0.0-1.3) K/mcL Eosinophils # 0.3 (0.0-0.6) K/mcL Basophils # 0.0 (0.0-0.2) K/mcL Sodium 137 (136-145) mEq/L Potassium 3.7 (3.5-5.1) mEq/L Chloride 97 L (98-107) mEq/L Carbon Dioxide 35 H (23-29) mEq/L BUN 20 (6-20) mg/dL Creatinine 0.94 (0.70-1.30) mg/dL Est GFR ( Amer) > 60 (> 60) Est GFR (Non-Af Amer) > 60 (> 60) BUN/Creatinine Ratio 21 (6-26) Glucose 129 H (70-105) mg/dL Calculated Osmolality 288 (280-300) Lactic Acid 1.3 (0.5-2.2) mmol/L Calcium 9.1 (8.6-10.3) mg/dL
[2018-07-27] MEDS ORDERED: Piperacillin/Tazobactam 3.375 GM in 0.9 % Sodium Chloride Mini Bag 100 ML IVPB ONE (04:39)
[2018-07-27 04:58] LABS: Basophils % 0.2 %; Eosinophils # 0.3 K/mcL (0.0-0.6); Eosinophils % 2.1 %; Hematocrit 36.1 % (37.5-50.1); Immature Granulocytes % 0.4 % (0-4); Lymphocytes # 2.4 K/mcL (0.6-4.6); Mean Corpuscular HGB Conc 33.2 g/dL (31.6-35.5); Mean Corpuscular Hemoglobin 29.1 pg (28.0-33.3); Mean Corpuscular Volume 87.6 fL (83.0-100.0); Mean Platelet Volume 9.6 fL (9.4-12.4); Monocytes # 0.9 K/mcL (0.0-1.3); Monocytes % 6.7 %; Neutrophils # 10.2 K/mcL (1.6-8.9); Platelet Count 298 K/mcL (140-400); Red Blood Count 4.12 M/mcL (4.19-5.50); Red Cell Distribution Width 13.2 % (11.5-14.5); Segmented Neutrophils % 73.6 %
[2018-07-27 05:13] LABS: BUN/Creatinine Ratio 21 (6-26); Blood Urea Nitrogen 20 mg/dL (6-20); Calcium 9.1 mg/dL (8.6-10.3); Carbon Dioxide 35 mEq/L (23-29); Chloride 97 mEq/L (98-107); Glucose 129 mg/dL (70-105); Osmolality,Calculated 288 (280-300); Potassium 3.7 mEq/L (3.5-5.1); Sodium 137 mEq/L (136-145); eGFR For Non-African Americans > 60 (> 60)
[2018-07-27] MEDS ORDERED: Ketorolac 30 MG/ML VIAL IVP ONE (05:41)
--- NOTE | 2018-07-27 06:27 | Emergency Department Note ---
Disposition Clinical Impression: Facial abscess Disposition: Admitted As Inpatient Condition: Fair Referrals: NONE,PCP [Primary Care Provider] - Forms: ED Satisfaction Letter, Work/School Release General Adult HPI - General Chief complaint: ED General Medical Stated complaint: Nose Swollen Time Seen by Provider: 07/27/18 03:56 Source: patient Limitations: no limitations Nursing Notes Reviewed: Yes Vital Signs Reviewed: Yes - History of Present Illness Pain Scale: 8 - Related Data Home Medications Medication Instructions Recorded Confirmed amLODIPine [Norvasc] 5 mg PO DAILY 05/03/18 05/03/18 Previous Rx's Medication Instructions Recorded Clindamycin [Cleocin] 150 mg PO Q6HR #28 capsule 05/04/18 Nicotine Patch [Nicoderm] 21 mg TD DAILY #20 patch.td24 05/04/18 amLODIPine [Norvasc] 5 mg PO DAILY #30 tablet 05/04/18 Allergies Allergy/AdvReac Type Severity Reaction Status Date / Time No Known Allergies Allergy Verified 05/03/18 13:42 Constitutional: Denies: fever Eyes: Denies: eye pain ENT ED: Reports: other (nose pain and swelling). Denies: ear pain Cardiovascular: Denies: chest pain Respiratory: Denies: cough Gastrointestinal: Denies: abdominal pain Genitourinary: Denies: urgency Musculoskeletal: Denies: back pain Integumentary: Reports: lesions. Denies: rash Neurological: Denies: headache Psychiatric: Denies: anxiety Endocrine: Denies: fatigue Hematological/Lymphatic: Denies: easy bleeding Allergic/Immunologic: Denies: facial swelling Past Medical History - Past Medical History Medical history: Reports: hypertension Psychiatric history: Reports: anxiety - Social History Smoking Status: Current every day smoker Smokeless Tobacco Status: No Alcohol use: Reports: none, occasionally Drug use: Reports: none Physical Exam - General Limitations: no limitations General appearance: alert, in no apparent distress Course Vital Signs Temperature 98.1 F 07/27/18 03:58 Pulse Rate 98 07/27/18 03:58 Respiratory Rate 16 07/27/18 03:58 Blood Pressure 167/115 07/27/18 03:58 O2 Sat by Pulse Oximetry 100 07/27/18 03:58 Temperature 98.1 F 07/27/18 03:58 Pulse Rate 86 07/27/18 06:17 Respiratory Rate 16 07/27/18 06:17 Blood Pressure 143/90 07/27/18 06:17 O2 Sat by Pulse Oximetry 99 07/27/18 06:17 Oxygen Delivery Oxygen Delivery Room Air Medical Decision Making - Lab Data Lab results reviewed: Yes I reviewed the patient's lab results. Result diagrams: 07/27/18 04:45 07/27/18 04:45 Lab Results 07/27/18 07/27/18 07/27/18 Range/Units 04:45 04:45 04:45 WBC 13.8 H (4.3-11.1) K/mcL RBC 4.12 L (4.19-5.50) M/mcL Hgb 12.0 L (12.9-16.9) g/dL Hct 36.1 L (37.5-50.1) % MCV 87.6 (83.0-100.0) fL MCH 29.1 (28.0-33.3) pg MCHC 33.2 (31.6-35.5) g/dL RDW 13.2 (11.5-14.5) % Plt Count 298 (140-400) K/mcL MPV 9.6 (9.4-12.4) fL Immature Gran % 0.4 (0-4) % Seg Neutrophils % 73.6 % Lymphocytes % 17.0 % Monocytes % 6.7 % Eosinophils % 2.1 % Basophils % 0.2 % Neutrophils # 10.2 H (1.6-8.9) K/mcL Lymphocytes # 2.4 (0.6-4.6) K/mcL Monocytes # 0.9 (0.0-1.3) K/mcL Eosinophils # 0.3 (0.0-0.6) K/mcL Basophils # 0.0 (0.0-0.2) K/mcL Sodium 137 (136-145) mEq/L Potassium 3.7 (3.5-5.1) mEq/L Chloride 97 L (98-107) mEq/L Carbon Dioxide 35 H (23-29) mEq/L BUN 20 (6-20) mg/dL Creatinine 0.94 (0.70-1.30) mg/dL Est GFR ( Amer) > 60 (> 60) Est GFR (Non-Af Amer) > 60 (> 60) BUN/Creatinine Ratio 21 (6-26) Glucose 129 H (70-105) mg/dL Calculated Osmolality 288 (280-300) Lactic Acid 1.3 (0.5-2.2) mmol/L Calcium 9.1 (8.6-10.3) mg/dL - Radiology Data Radiology results reviewed: Yes I reviewed the patient's radiology results. Critical Care Time Critical Care Time: No Attestation Statement - Attestation Attestation: I, Luis Enrique Banda MD, personally evaluated this patient and discussed their management with the midlevel provicer, PAC/SNACK STEWARDESS. I reviewed the midlevel provider's note and agree with the documented findings, medical decision making, and plan of care. 42-year-old male presents to the emergency department with a complaint of an abscess to his nose and mid face which started 2 days ago and has gotten significantly worse over the last 24 hours. No fever. Swelling of both eyes but worse on the left. No difficulty breathing or swallowing. Some mild headache. No rash or stiff neck. Patient states about a month ago he had an abscess on the right cheek which was incised and drained. On examination patient is a well-developed well-nourished male in no acute distress. He is alert and oriented 3. There is no cyanosis or diaphoresis. Patient has marked swelling of the nose and mid face with mild periorbital swelling bilaterally but worse on the left. Worse swelling of the left cheek. There is an area on the left side of the nose with some purulent drainage. EOMs intact. Neck supple with no lymphadenopathy and full range of motion. No meningismus. Rest sounds are clear and equal bilaterally. Heart regular rate and rhythm. Abdomen soft and nontender with normal bowel sounds. Labs reviewed. CT of the face with IV contrast is pending. IV antibiotics initiated. Patient will need admitted for IV antibiotics. ENT was consulted and will follow-up with the patient later today in the hospital. We will consult the hospitalist for admission.
--- NOTE | 2018-07-27 06:50 | Emergency Department Note ---
Disposition Clinical Impression: Facial abscess, Facial cellulitis Disposition: Admitted As Inpatient Condition: Fair General Adult HPI - General Chief complaint: ED General Medical Stated complaint: Nose Swollen Time Seen by Provider: 07/27/18 03:56 Source: patient Limitations: no limitations Nursing Notes Reviewed: Yes Vital Signs Reviewed: Yes - History of Present Illness Pain Scale: 8 - Related Data Home Medications Medication Instructions Recorded Confirmed amLODIPine [Norvasc] 5 mg PO DAILY 05/03/18 05/03/18 Previous Rx's Medication Instructions Recorded Clindamycin [Cleocin] 150 mg PO Q6HR #28 capsule 05/04/18 Nicotine Patch [Nicoderm] 21 mg TD DAILY #20 patch.td24 05/04/18 amLODIPine [Norvasc] 5 mg PO DAILY #30 tablet 05/04/18 Allergies Allergy/AdvReac Type Severity Reaction Status Date / Time No Known Allergies Allergy Verified 05/03/18 13:42 Constitutional: Denies: fever Eyes: Denies: eye pain ENT ED: Reports: other (nose pain and swelling). Denies: ear pain Cardiovascular: Denies: chest pain Respiratory: Denies: cough Gastrointestinal: Denies: abdominal pain Genitourinary: Denies: urgency Musculoskeletal: Denies: back pain Integumentary: Reports: lesions. Denies: rash Neurological: Denies: headache Psychiatric: Denies: anxiety Endocrine: Denies: fatigue Hematological/Lymphatic: Denies: easy bleeding Allergic/Immunologic: Denies: facial swelling Past Medical History - Past Medical History Medical history: Reports: hypertension Psychiatric history: Reports: anxiety - Social History Smoking Status: Current every day smoker Smokeless Tobacco Status: No Alcohol use: Reports: none, occasionally Drug use: Reports: none Physical Exam - General Limitations: no limitations General appearance: alert, in no apparent distress Course Course Narrative: Assumed care of this patient from Harrison Silva CNP at shift change. Patient is sleeping. Vitals are all normal at this time. Patient has facial cellulitis, and two facial abscesses - per CT. No orbital involvement. EOM's normal and no c/o vision changes. No globe pain or tenderness to palpation. No headache, neck pain or stiffness. Patient has habit of picking at skin - especially on face. Suspect staph infection. No hx of DM. - Consultations Consultation #1: Case discussed with Dr. Corea - ENT surgeon numerical control operator. She is agreeable to see the patient today. She agrees with the plan to admit this patient to the hospitalist. Hospitalist leonor. Discussed case with the hospitalist. She will accept the patient for admission. Time: 06:50 Vital Signs Temperature 98.1 F 07/27/18 03:58 Pulse Rate 98 07/27/18 03:58 Respiratory Rate 16 07/27/18 03:58 Blood Pressure 167/115 07/27/18 03:58 O2 Sat by Pulse Oximetry 100 07/27/18 03:58 Temperature 98.2 F 07/27/18 08:24 Pulse Rate 89 07/27/18 08:24 Respiratory Rate 16 07/27/18 08:24 Blood Pressure 132/77 07/27/18 08:24 O2 Sat by Pulse Oximetry 99 07/27/18 08:24 Oxygen Delivery Oxygen Delivery Room Air Medical Decision Making - Medical Records Medical records reviewed: Yes I reviewed the patient's medical records. - Lab Data Lab results reviewed: Yes I reviewed the patient's lab results. Result diagrams: 07/27/18 04:45 07/27/18 04:45 Lab Results 07/27/18 07/27/18 07/27/18 Range/Units 04:45 04:45 04:45 WBC 13.8 H (4.3-11.1) K/mcL RBC 4.12 L (4.19-5.50) M/mcL Hgb 12.0 L (12.9-16.9) g/dL Hct 36.1 L (37.5-50.1) % MCV 87.6 (83.0-100.0) fL MCH 29.1 (28.0-33.3) pg MCHC 33.2 (31.6-35.5) g/dL RDW 13.2 (11.5-14.5) % Plt Count 298 (140-400) K/mcL MPV 9.6 (9.4-12.4) fL Immature Gran % 0.4 (0-4) % Seg Neutrophils % 73.6 % Lymphocytes % 17.0 % Monocytes % 6.7 % Eosinophils % 2.1 % Basophils % 0.2 % Neutrophils # 10.2 H (1.6-8.9) K/mcL Lymphocytes # 2.4 (0.6-4.6) K/mcL Monocytes # 0.9 (0.0-1.3) K/mcL Eosinophils # 0.3 (0.0-0.6) K/mcL Basophils # 0.0 (0.0-0.2) K/mcL ESR (0-10) mm/hr Sodium 137 (136-145) mEq/L Potassium 3.7 (3.5-5.1) mEq/L Chloride 97 L (98-107) mEq/L Carbon Dioxide 35 H (23-29) mEq/L BUN 20 (6-20) mg/dL Creatinine 0.94 (0.70-1.30) mg/dL Est GFR ( Amer) > 60 (> 60) Est GFR (Non-Af Amer) > 60 (> 60) BUN/Creatinine Ratio 21 (6-26) Glucose 129 H (70-105) mg/dL Calculated Osmolality 288 (280-300) Lactic Acid 1.3 (0.5-2.2) mmol/L Calcium 9.1 (8.6-10.3) mg/dL Creatine Kinase 78 (30-223) Units/L 07/27/18 Range/Units 04:45 WBC (4.3-11.1) K/mcL RBC (4.19-5.50) M/mcL Hgb (12.9-16.9) g/dL Hct (37.5-50.1) % MCV (83.0-100.0) fL MCH (28.0-33.3) pg MCHC (31.6-35.5) g/dL RDW (11.5-14.5) % Plt Count (140-400) K/mcL MPV (9.4-12.4) fL Immature Gran % (0-4) % Seg Neutrophils % % Lymphocytes % % Monocytes % % Eosinophils % % Basophils % % Neutrophils # (1.6-8.9) K/mcL Lymphocytes # (0.6-4.6) K/mcL Monocytes # (0.0-1.3) K/mcL Eosinophils # (0.0-0.6) K/mcL Basophils # (0.0-0.2) K/mcL ESR 39 H (0-10) mm/hr Sodium (136-145) mEq/L Potassium (3.5-5.1) mEq/L Chloride (98-107) mEq/L Carbon Dioxide (23-29) mEq/L BUN (6-20) mg/dL Creatinine (0.70-1.30) mg/dL Est GFR ( Amer) (> 60) Est GFR (Non-Af Amer) (> 60) BUN/Creatinine Ratio (6-26) Glucose (70-105) mg/dL Calculated Osmolality (280-300) Lactic Acid (0.5-2.2) mmol/L Calcium (8.6-10.3) mg/dL Creatine Kinase (30-223) Units/L Laboratory Last Values WBC 13.8 K/mcL (4.3-11.1) H 07/27/18 04:45 RBC 4.12 M/mcL (4.19-5.50) L 07/27/18 04:45 Hgb 12.0 g/dL (12.9-16.9) L 07/27/18 04:45 Hct 36.1 % (37.5-50.1) L 07/27/18 04:45 MCV 87.6 fL (83.0-100.0) 07/27/18 04:45 MCH 29.1 pg (28.0-33.3) 07/27/18 04:45 MCHC 33.2 g/dL (31.6-35.5) 07/27/18 04:45 RDW 13.2 % (11.5-14.5) 07/27/18 04:45 Plt Count 298 K/mcL (140-400) 07/27/18 04:45 MPV 9.6 fL (9.4-12.4) 07/27/18 04:45 Immature Gran % 0.4 % (0-4) 07/27/18 04:45 Seg Neutrophils % 73.6 % 07/27/18 04:45 Lymphocytes % 17.0 % 07/27/18 04:45 Monocytes % 6.7 % 07/27/18 04:45 Eosinophils % 2.1 % 07/27/18 04:45 Basophils % 0.2 % 07/27/18 04:45 Neutrophils # 10.2 K/mcL (1.6-8.9) H 07/27/18 04:45 Lymphocytes # 2.4 K/mcL (0.6-4.6) 07/27/18 04:45 Monocytes # 0.9 K/mcL (0.0-1.3) 07/27/18 04:45 Eosinophils # 0.3 K/mcL (0.0-0.6) 07/27/18 04:45 Basophils # 0.0 K/mcL (0.0-0.2) 07/27/18 04:45 ESR 39 mm/hr (0-10) H 07/27/18 04:45 Sodium 137 mEq/L (136-145) 07/27/18 04:45 Potassium 3.7 mEq/L (3.5-5.1) 07/27/18 04:45 Chloride 97 mEq/L (98-107) L 07/27/18 04:45 Carbon Dioxide 35 mEq/L (23-29) H 07/27/18 04:45 BUN 20 mg/dL (6-20) 07/27/18 04:45 Creatinine 0.94 mg/dL (0.70-1.30) 07/27/18 04:45 Est GFR ( Amer) > 60 (> 60) 07/27/18 04:45 Est GFR (Non-Af Amer) > 60 (> 60) 07/27/18 04:45 BUN/Creatinine Ratio 21 (6-26) 07/27/18 04:45 Glucose 129 mg/dL (70-105) H 07/27/18 04:45 Calculated Osmolality 288 (280-300) 07/27/18 04:45 Lactic Acid 1.3 mmol/L (0.5-2.2) 07/27/18 04:45 Calcium 9.1 mg/dL (8.6-10.3) 07/27/18 04:45 Creatine Kinase 78 Units/L (30-223) 07/27/18 04:45 - Radiology Data Radiology results reviewed: Yes I reviewed the patient's radiology results. Face CT 07/27/18 04:26 IMPRESSION: Significant soft tissue swelling throughout the face with abscesses in the left side of the nose and the left supraorbital region. D/ / Martin Littlejohn MD / Martin Littlejohn MD Interpreting Provider: Martin Littlejohn MD
[2018-07-27] MEDS ORDERED: Acetaminophen 325 MG TABLET PO PRN (07:05)
--- NOTE | 2018-07-27 07:18 | Internal Med History&Physical ---
Date of Encounter: 07/27/18 Time of Encounter: 07:16 Internal Medicine - H&P: HPI Chief complaint: facial swelling Admitted From: Home Plans for Post Hospital Care: Home History of present illness: Mr. Crowley is a 42 year old male with history of IVDA and recent admission for right sided facial adn orbital cellulitis in 04/2018 presented to the ED with left sided facial swelling. as per patient he was a habit of picking his face. felt swelling started 2 days ago on the left side of his face and is progressively worsening. he is current IVDA, last use was last week. he reports that he uses methamphetamine and develops "pimple" then he "pops and scratches" the "pimples and scabs" and then symptoms above develops. his facial swelling is associated with minimal pain that radiates from nose to his cheeks. cannot re call alleviating or aggravating factors. denies purulen discharge from the nose or periobital area. he reports that his symptoms resolved on april with Oral Abx. denies fever, chills, headache, vision loss/changes, discharge from the eye, CP, SOB, N/V/D, head trauma, neck stiffness, palpitations, difficulty swallowing. Past Med Surg Social Fam HX - Past Medical History Medical history: hypertension Additional medical history: 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 - Social History Smoking Status: Current every day smoker Smokeless Tobacco Status: No Alcohol use: none, occasionally Drug use: none - Family History Father Hx Family Cardiac Disorders: Yes (HTN) Internal Medicine - H&P: Meds amLODIPine [Norvasc] 5 mg PO DAILY 05/03/18 [History] Clindamycin [Cleocin] 150 mg PO Q6HR #28 capsule 05/04/18 [Rx] Nicotine Patch [Nicoderm] 21 mg TD DAILY #20 patch.td24 05/04/18 [Rx] amLODIPine [Norvasc] 5 mg PO DAILY #30 tablet 05/04/18 [Rx] Allergy/AdvReac Type Severity Reaction Status Date / Time No Known Allergies Allergy Verified 05/03/18 13:42 All Systems PM: A 10-system review of systems was performed and is negative for pertinent findings except as documented above in the HPI. - Constitutional Vitals: Temp Pulse Resp BP Pulse Ox 98.1 F 86 16 143/90 99 07/27/18 03:58 07/27/18 06:17 07/27/18 06:17 07/27/18 06:17 07/27/18 06:17 Exam: General: Patient is alert, oriented, no acute distress, poor hygiene Head: atraumatic, normocephalic, left side of the face has erythema from above the eyebrows down to the periorbital area and the nose, multiple scabs on the face, minimally tender to palpation Eye: normal appearance, PERRL, no sclera icterus, no conjunctival injection, accommodation intact, EOMI intact ENT: mucous membranes moist, normal external ear exam, left side of the nose is swollen, red and warm, Neck: normal inspection, trachea midline, full ROM, no carotid bruits Chest: normal inspection, symmetric chest rise Respiratory: Good respiratory effort. Bilateral breath sounds are clear without wheezing, crackles, or rhonchi. Cardiovascular: Regular rate and rhythm. s1 and s2 No clicks, rubs, gallops, or murmors. Abdomen: Bowel sounds present normoactive x-4 quadrants. Abdomen is soft, nondistended. no Epigastric tenderness. No guarding or rebound. No organomegaly noted musculoskeletal: Spontaneously moving all extremities. no edema, no calf tenderness Skin: warm, dry, intact. Neuro: Alert and oriented x4. Sensation light touch intact. Cranial nerves 2- 12 is intact. no fiocal deficit Psych: Patient's affect is normal Internal Med - H&P Results - Labs CBC & Chem 7: 07/27/18 04:45 07/27/18 04:45 Labs: Short CBC 07/27/18 Range/Units 04:45 WBC 13.8 H (4.3-11.1) K/mcL Hgb 12.0 L (12.9-16.9) g/dL Hct 36.1 L (37.5-50.1) % Plt Count 298 (140-400) K/mcL Neutrophils # 10.2 H (1.6-8.9) K/mcL BMP 07/27/18 04:45 Sodium 137 Potassium 3.7 Chloride 97 L Carbon Dioxide 35 H BUN 20 Creatinine 0.94 Glucose 129 H Calcium 9.1 - Impressions ITS Impressions Face CT 07/27/18 04:26 IMPRESSION: Significant soft tissue swelling throughout the face with abscesses in the left side of the nose and the left supraorbital region. D/ / Martin Littlejohn MD / Martin Littlejohn MD Interpreting Provider: Martin Littlejohn MD - Assessment and plan (1) Cellulitis and abscess of face Current Visit: Yes Status: Acute Assessment and plan: was here for similar symptoms on the right now involving the left side of the face- was D/C on clindamycin in April 2018 is current IVDA last use was one week prior to admission ENT consulted in the ED- will follow recommendations continue vancomycin and zosyn - pharmacy to dose lactic acid WNL will send CPK, Utox, A1c, ESR, CRP bcx, mrsa nasal screen. consider ID consult warm compress I discussed the risks associated with periorbital/ facial cellulites possibly even losing his vision, brain abscess and Etc and he understands and agrees with continuing with IV Abx and possible procedure with ENT he was counseled extensively on illicit drug abstinence CT face: IMPRESSION: Significant soft tissue swelling throughout the face with abscesses in the left side of the nose and the left supraorbital region. (2) Hypertension Current Visit: No Status: Chronic Assessment and plan: continue amlodipine and titrate as per BP Qualified Code(s): I10 - Essential (primary) hypertension (3) Tobacco dependence Current Visit: No Status: Chronic Assessment and plan: was counseled nicotine patch (4) Drug use disorder Current Visit: Yes Status: Acute Assessment and plan: urine toxicology he was counseled extensively on illicit drug abstinence (5) DVT prophylaxis Current Visit: No Status: Acute Assessment and plan: heparin sc - Time Spent With Patient Total time spent is greater than 50% in coordination of care (as documented) at patient's floor/unit and/or counseling patient:
[2018-07-27 07:31] LABS: Creatine Kinase 78 Units/L (30-223)
[2018-07-27] MEDS: 0.9 % Sodium Chloride 1,000 ML IVC SCH (08:45)
[2018-07-27] MEDS: amLODIPine 5 MG TABLET PO SCH (08:45)
[2018-07-27 08:53] LABS: C-Reactive Protein 80 mg/L (Less than 10)
[2018-07-27] MEDS: Nicotine 21 MG PATCH.TD24 TD SCH (09:04)
[2018-07-27] MEDS: *HR* Heparin 5,000 UNIT/ML VIAL SQ SCH ×2 (14:12→22:19)
[2018-07-27] MEDS: Piperacillin/Tazobactam 3.375 GM in 0.9 % Sodium Chloride Mini Bag 100 ML IVPB SCH (16:08)
[2018-07-27] MEDS: traMADol 50 MG TABLET PO PRN (16:08)
--- NOTE | 2018-07-27 16:14 | ENT - Consult Note ---
Date of Encounter: 07/27/18 Time of Encounter: 16:10 Assessment and Plan (1) Cellulitis and abscess of face Current Visit: Yes Status: Acute Continue IV antibiotics per primary team, may consider IV Decadron to help reduce swelling. Also consider ID consult if no improvement after I&D performed. (2) Drug use disorder Current Visit: Yes Status: Acute (3) Facial abscess Current Visit: Yes Status: Acute Patient with multiple abscesses of the face causing significant swelling of the left nasal bridge extending onto the face and the left supraorbital region extending inferiorly causing swelling of the upper lid. CT scan was reviewed which did not show any involvement or any extension into the orbit patient did have significant cellulitis soft tissue swelling of the surrounding area close to the 2 abscesses that were visualized. The following procedure was recommended for the patient: Incision and drainage of both the supraorbital abscess on the left and the left nasal abscess. Risks, benefits, alternatives procedure were discussed with the patient the bedside, verbal consent was obtained. See procedure note. Procedure was done at the bedside. Wound was packed along the nasal bridge the abscess with small supraorbitally and patient did not tolerate packing of this area. Recommend mupirocin ointment to the 2 incision sites. Copious amounts of purulence were obtained from both abscess sites more so from the nasal abscess. Culture was obtained. We will continue to follow for improvement. If this worsens and extends to cause any worsening of the swelling around the eye on the left could consider transfer to a tertiary facility where ophthalmology is available. (4) Periorbital cellulitis Current Visit: No Status: Acute Qualifiers: Laterality: right Qualified Code(s): L03.213 - Periorbital cellulitis History of Present Illness Consult date: 07/27/18 Comment: Multiple Facial abscesses Requesting physician: Kari Fraser M.D. History of present illness: Patient is a 42-year-old male that presented to the ER with recurrent facial abs cesses. Patient is a known IV drug abuser that has had history of MRSA and needed previous I&D of facial abscess in the right side of his face in the past last time dose known was 3 months ago. Patient presented again with abscesses on the right side of the face with associated swelling of the nose and the eye. CT scan was performed in the ER which showed 2 abscesses largest on the left nasal bridge extending onto the cheek and left supraorbital region just above the eyebrow. Patient was admitted by the hospitalist and placed on IV antibiotics. Skin lesions worsened after patient picked at them and have progressed over the last 2 days. Per patient last IV drug use was last week. Patient denies any drainage. No shortness of breath Past Med Surg Social Fam HX - Past Medical History Medical history: hypertension Additional medical history: 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 - Social History Smoking Status: Current every day smoker Packs per day: 1 pack a day Smokeless Tobacco Status: No Alcohol use: none, occasionally Drug use: none - Family History Father Hx Family Cardiac Disorders: Yes (HTN) Medications and Allergies amLODIPine [Norvasc] 5 mg PO DAILY #30 tablet 05/04/18 [Rx] Allergy/AdvReac Type Severity Reaction Status Date / Time No Known Allergies Allergy Verified 07/27/18 10:39 ENT - ROS - Constitutional Constitutional ROS: as per HPI - EENT Eyes: left: Pain eye Nose, mouth and throat: facial pain, nose pain - Cardiovascular Cardiovascular ROS IM: no chest pain - Respiratory no dyspnea ENT Exam Initial Vital Signs Temp Pulse Resp BP Pulse Ox 98.1 F 98 16 167/115 100 07/27/18 03:58 07/27/18 03:58 07/27/18 03:58 07/27/18 03:58 07/27/18 03:58 - General physical appearance moderate distress, severe pain, cachectic, other (Poor hygiene) - Eyes other (Approximately 4 cm area of induration with central fluctuance and central pore with some purulent drainage), PERRL, normal ocular movement - ENT Other (Induration with central fluctuance along the left nasal side wall extending onto the cheek, approximately 5 cm) - Neck no masses, trachea midline, no lymphadectomy - Respiratory normal expansion, normal respiratory effort - Integumentary other (Multiple crusted and scabbed lesions on the face, track martin on the a manuelito) - Neurologic CN 2-12 grossly intact, combative Exam Initial Vital Signs Temp Pulse Resp BP Pulse Ox 98.1 F 98 16 167/115 100 07/27/18 03:58 07/27/18 03:58 07/27/18 03:58 07/27/18 03:58 07/27/18 03:58 Results - Labs 07/27/18 04:45 07/27/18 04:45 Abnormal lab results WBC 13.8 K/mcL (4.3-11.1) H 07/27/18 04:45 RBC 4.12 M/mcL (4.19-5.50) L 07/27/18 04:45 Hgb 12.0 g/dL (12.9-16.9) L 07/27/18 04:45 Hct 36.1 % (37.5-50.1) L 07/27/18 04:45 Neutrophils # 10.2 K/mcL (1.6-8.9) H 07/27/18 04:45 ESR 39 mm/hr (0-10) H 07/27/18 04:45 Chloride 97 mEq/L (98-107) L 07/27/18 04:45 Carbon Dioxide 35 mEq/L (23-29) H 07/27/18 04:45 Glucose 129 mg/dL (70-105) H 07/27/18 04:45 C-Reactive Protein 80 mg/L (Less than 10) H 07/27/18 04:45 Nasal Screen MRSA (PCR) Positive (Negative) A 07/27/18 08:45 Diabetes panel 07/27/18 Range/Units 04:45 Sodium 137 (136-145) mEq/L Potassium 3.7 (3.5-5.1) mEq/L Chloride 97 L (98-107) mEq/L Carbon Dioxide 35 H (23-29) mEq/L BUN 20 (6-20) mg/dL Creatinine 0.94 (0.70-1.30) mg/dL Glucose 129 H (70-105) mg/dL Calcium 9.1 (8.6-10.3) mg/dL Calcium panel 07/27/18 Range/Units 04:45 Calcium 9.1 (8.6-10.3) mg/dL Pituitary panel 07/27/18 Range/Units 04:45 Sodium 137 (136-145) mEq/L Potassium 3.7 (3.5-5.1) mEq/L Chloride 97 L (98-107) mEq/L Carbon Dioxide 35 H (23-29) mEq/L BUN 20 (6-20) mg/dL Creatinine 0.94 (0.70-1.30) mg/dL Glucose 129 H (70-105) mg/dL Calcium 9.1 (8.6-10.3) mg/dL Adrenal panel 07/27/18 Range/Units 04:45 Sodium 137 (136-145) mEq/L Potassium 3.7 (3.5-5.1) mEq/L Chloride 97 L (98-107) mEq/L Carbon Dioxide 35 H (23-29) mEq/L BUN 20 (6-20) mg/dL Creatinine 0.94 (0.70-1.30) mg/dL Glucose 129 H (70-105) mg/dL Calcium 9.1 (8.6-10.3) mg/dL All other labs normal. Consult Discharge Plan - Plan Referrals: NONE,PCP [Primary Care Provider] -
--- NOTE | 2018-07-27 16:29 | ENT - Procedure Note ---
Date of procedure: 07/27/18 Procedure: Procedure: 1. Incision and drainage of supraorbital abscess, left 2. Incision and drainage of facial abscess, left nasal sidewall Preprocedure diagnosis: Supraorbital abscess, left facial abscess, IV drug use, history of MRSA infection Postprocedure diagnosis: Same Indications: Patient is a 42-year-old gentleman that presented the emergency room due to enlarging abscesses of the face. Patient with a history of MRSA abscess of the face in the past last drainage was 3 months ago. Patient with 2 days of progressing swelling and worsening pain in this area. Patient with a history of picking at lesions on his face as well. CT scan was performed which showed multiple abscesses of the face of the supraorbital region as well as the left mid face. Risks, benefits, and alternatives to incision and drainage was discussed with the patient the bedside verbal consent was obtained The patient supine in the bed skin was prepped in a sterile fashion. 1% lidocaine with epinephrine was injected in the surrounding areas of both the supraorbital abscess as well as the nasal/mid face abscess, approximately 2 mL was used in each area for a total 4 mL. Time was given to allow anesthesia as well as vasoconstriction of the area. 11 blade was then used to first puncture the supraorbital abscess in the central area where fluctuance was palpable. Stab incision was made, purulence was immediately obtained. Curved hemostat was then inserted into the area of incision and loculations were broken up. Area was then milked to express the remaining purulence within the abscess pocket. The same was repeated on the second abscess by placing an 11 blade into the central portion of the visible abscess were was most fluctuant just above the scab at the lower aspect of the indurated area. Once the 11 blade was inserted into the nasal abscess, again a large amount of purulence was immediately expressed. This was cultured with an aerobic swab. Curved hemostat again was used to break up any loculations within the abscess pocket through the point of incision. Purulence was no doubt of the abscess pocket again by applying pressure to the surrounding area. Area was then cleaned and iodoform gauze was then packed within the nasal abscess pocket as this was a larger pocket. Gauze was taped into place. Before by 4 was taped over the I&D site for the eyelid lesion. Patient tolerated this procedure with some difficulty but it was able to be performed. Anesthesia: topical Surgeon: Bel Corea Was there an industrial hire sales assistant present: No Estimated blood loss (cc): 4 Specimens collected: Left nasal abscess
[2018-07-28] MEDS: 0.9 % Sodium Chloride 1,000 ML IVC SCH (03:19)
[2018-07-28 04:46] LABS: INR 1.2; Prothrombin Time 13.3 Seconds (9.4-12.1)
[2018-07-28 04:48] LABS: Activated Partial Thrombo Time 28.5 Seconds (26.0-36.0)
[2018-07-28 04:57] LABS: BUN/Creatinine Ratio 16 (6-26); Blood Urea Nitrogen 10 mg/dL (6-20); Calcium 8.5 mg/dL (8.6-10.3); Carbon Dioxide 26 mEq/L (23-29); Chloride 104 mEq/L (98-107); Glucose 104 mg/dL (70-105); Osmolality,Calculated 281 (280-300); Phosphorous 2.4 mg/dL (2.7-4.5); Potassium 3.7 mEq/L (3.5-5.1); Sodium 136 mEq/L (136-145); eGFR For Non-African Americans > 60 (> 60)
[2018-07-28] MEDS: *HR* Heparin 5,000 UNIT/ML VIAL SQ SCH ×2 (05:47→16:01)
[2018-07-28 05:50] LABS: Basophils % 0.3 %; Eosinophils # 0.2 K/mcL (0.0-0.6); Eosinophils % 1.6 %; Hematocrit 34.6 % (37.5-50.1); Hemoglobin 11.3 g/dL (12.9-16.9); Immature Granulocytes % 0.5 % (0-4); Lymphocytes # 2.4 K/mcL (0.6-4.6); Lymphocytes % 19.1 %; Mean Corpuscular HGB Conc 32.7 g/dL (31.6-35.5); Mean Corpuscular Hemoglobin 28.8 pg (28.0-33.3); Mean Corpuscular Volume 88.3 fL (83.0-100.0); Mean Platelet Volume 9.8 fL (9.4-12.4); Monocytes # 1.2 K/mcL (0.0-1.3); Monocytes % 9.1 %; Neutrophils # 8.9 K/mcL (1.6-8.9); Platelet Count 312 K/mcL (140-400); Red Blood Count 3.92 M/mcL (4.19-5.50); Red Cell Distribution Width 13.5 % (11.5-14.5); Segmented Neutrophils % 69.4 %
[2018-07-28] MEDS: Piperacillin/Tazobactam 3.375 GM in 0.9 % Sodium Chloride Mini Bag 100 ML IVPB SCH ×3 (07:45→16:02)
[2018-07-28] MEDS: Nicotine 21 MG PATCH.TD24 TD SCH (07:45)
[2018-07-28] MEDS: amLODIPine 5 MG TABLET PO SCH (07:46)
[2018-07-28 10:50] LABS: Estimated Average Glucose 131 mg/dl; Hemoglobin A1C 6.2 %
[2018-07-28] MEDS ORDERED: *HR* LORazepam 1 MG TABLET PO PRN (11:06)
--- NOTE | 2018-07-28 11:09 | Internal Med Progress Note ---
Hospitalist Progress Note - Encounter Date of Encounter: 07/28/18 Time of Encounter: 11:02 - Subjective Interval History: Mr. Crowley is a 42 year old male with history of IVDA and recent admission for right sided facial and orbital cellulitis in 04/2018 presented to the ED with left sided facial swelling. He does have habbit picking his face. He felt small pimple and swelling started few days ago on the left side of his face and is progressively worsening. Patient is a known IV drug abuser that has had history of MRSA and needed previous I&D of facial abscess in the right side of his face. CT scan was performed in the ER which showed 2 abscesses largest on the left nasal bridge extending onto the cheek and left supraorbital region just above th e eyebrow. He is an active IVDA, had last dose a week ago. Patient was admitted in the hospital and started him on broad-spectrum antibiotic zosyn and vancomycin. He was seen by ENT who did I & D of 2 abscess over left side of face just above the nasal bridge and forehead.. Patient stated his swelling little better today.. Pain is also tolerable with medication - Exam Vitals: Temp Pulse Resp BP Pulse Ox 97.6 F 92 17 150/94 99 07/28/18 07:36 07/28/18 07:36 07/28/18 07:36 07/28/18 07:36 07/28/18 07:36 Exam: Gen: Alert, awake, Oriented to time,place and person HEENT / Face: s/p I & D left forehead and nasal bridge abscess with wound packing noticed.. Still has significant swelling and erythema over left side of the face Chest: Diminished breath sounds B/L, No wheezing, No crackles, No rales Heart: S1S2+ RRR No murmurs Abd: Soft, NT, BS +, No organomegaly Ext: No edema, pulses are palpable, No calf tenderness Neuro : Benign findings Skin: No rash. - Assessment and Plan (1) Cellulitis and abscess of face Current Visit: Yes Status: Acute Assessment and Plan: History of MRSA infection the past s/p I & D of abscess x 2 - y/d will follow-up on wound culture appreciate ENT recommendations continue broad-spectrum antibiotic Zosyn and vancomycin patient is high risk for sepsis and withdrawal symptoms due to IV drug usage. He does need close monitoring on tele and need to stay in the hospital more than 2 midnights, so will switch him to full admission today. I did review my colleague Dr. Guzman's H & P including HPI, PMH, PSH, FH, SH, and ROS no changes noticed (2) Drug use disorder Current Visit: Yes Status: Acute Assessment and Plan: Will follow-up on UDS high risk for withdrawal symptoms Placed him on CIWA assessment Q shift on Ativan as needed for anxiety/withdrawal symptoms (3) Hypertension Current Visit: No Status: Chronic Assessment and Plan: Stable with current medication continue amlodipine (4) DVT prophylaxis Current Visit: No Status: Acute Assessment and Plan: heparin sc (5) Tobacco dependence Current Visit: No Status: Chronic Assessment and Plan: Counseled to quit smoking placed on nicotine patch - Time Spent with Patient Total time spent is greater than 50% in coordination of care (as documented) at patient's floor/unit and/or counseling patient: Internal Medicine: Result - Labs CBC & Chem 7: 07/28/18 05:35 07/28/18 04:14 Labs: Short CBC 07/28/18 Range/Units 05:35 WBC 12.8 H (4.3-11.1) K/mcL Hgb 11.3 L (12.9-16.9) g/dL Hct 34.6 L (37.5-50.1) % Plt Count 312 (140-400) K/mcL Neutrophils # 8.9 (1.6-8.9) K/mcL BMP 07/28/18 04:14 Sodium 136 Potassium 3.7 Chloride 104 Carbon Dioxide 26 BUN 10 Creatinine 0.64 L Glucose 104 Calcium 8.5 L - ABG Interpretation ABG results: PT/INR, D-dimer PT 13.3 Seconds (9.4-12.1) H 07/28/18 04:14 Consult Discharge Plan - Plan Referrals: NONE,PCP [Primary Care Provider] -
[2018-07-28 11:34] LABS: Bilirubin,Urine Negative (Negative); Blood,Urine Negative (Negative); Clarity,Urine Clear (Clear); Color,Urine Yellow (Yellow); Glucose,Urine (UA) Normal (Normal); Ketones,Urine Negative (Negative); Leukocyte Esterase,Urine Negative (Negative); Nitrite,Urine Negative (Negative); Protein,Urine Negative (Neg-Trace); Specific Gravity,Urine 1.021 (1.010-1.025); Urobilinogen,Urine Normal (Normal)
[2018-07-28 12:08] LABS: Amphetamine Screen,Urine Positive ng/mL (Cutoff=1000); Barbiturate Screen,Urine Negative ng/mL (Cutoff=200); Benzodiazepines Screen,Urine Negative ng/mL (Cutoff=200); Cannabinoid Screen,Urine Negative ng/mL (Cutoff = 50); Cocaine Screen,Urine Negative ng/mL (Cutoff= 300); Opiate Screen,Urine Positive ng/mL (Cutoff=300)
[2018-07-28 12:09] LABS: Phencyclidine Screen,Urine Negative ng/mL (Cutoff=25)
--- NOTE | 2018-07-28 14:00 | ENT - Progress Note ---
Date of Encounter: 07/28/18 Time of Encounter: 12:00 - Assessment and Plan (1) Cellulitis and abscess of face Current Visit: Yes Status: Acute Patient seen and examined at bedside today. Packing changed to left nasal sidewall I&D site. Some purulence expressed from I&D site of left forehead and I&D site of left nasal sidewall. Patient reports swelling has decreased around left eye. Continue IV antibiotics per primary care team at this time. Patient was previously MRSA positive. Will continue to monitor for improvement and perform scheduled packing change to I&D site. Subjective Patient reports: still having pain Objective Initial Vital Signs Temp Pulse Resp BP Pulse Ox 98.1 F 98 16 167/115 100 07/27/18 03:58 07/27/18 03:58 07/27/18 03:58 07/27/18 03:58 07/27/18 03:58 - General physical appearance no distress - Eyes other (subtle edema still noted to bilateral periorbital area, worse on left ), PERRL, normal ocular movement - ENT Other (I&D site #1: Area involving the left eyebrow, Approximately 3 cm in size today, with induration noted, some purulent drainage expressed today from previos I&D site above left eyebrow. I&D site #2: the left nasal side wall with induration noted, extending onto the cheek, approximately 4 cm in size today, some purulent drainage expressed from centralized portion at I&D site. ) - Neck trachea midline - Respiratory normal expansion, normal respiratory effort - Labs 07/28/18 05:35 07/28/18 04:14 Diabetes panel 07/28/18 07/28/18 Range/Units 04:14 05:35 Sodium 136 (136-145) mEq/L Potassium 3.7 (3.5-5.1) mEq/L Chloride 104 (98-107) mEq/L Carbon Dioxide 26 (23-29) mEq/L BUN 10 (6-20) mg/dL Creatinine 0.64 L (0.70-1.30) mg/dL Glucose 104 (70-105) mg/dL Hemoglobin A1c 6.2 H ( - 5.6) % Calcium 8.5 L (8.6-10.3) mg/dL Calcium panel 07/28/18 Range/Units 04:14 Calcium 8.5 L (8.6-10.3) mg/dL Phosphorus 2.4 L (2.7-4.5) mg/dL Pituitary panel 07/28/18 Range/Units 04:14 Sodium 136 (136-145) mEq/L Potassium 3.7 (3.5-5.1) mEq/L Chloride 104 (98-107) mEq/L Carbon Dioxide 26 (23-29) mEq/L BUN 10 (6-20) mg/dL Creatinine 0.64 L (0.70-1.30) mg/dL Glucose 104 (70-105) mg/dL Calcium 8.5 L (8.6-10.3) mg/dL Adrenal panel 07/28/18 Range/Units 04:14 Sodium 136 (136-145) mEq/L Potassium 3.7 (3.5-5.1) mEq/L Chloride 104 (98-107) mEq/L Carbon Dioxide 26 (23-29) mEq/L BUN 10 (6-20) mg/dL Creatinine 0.64 L (0.70-1.30) mg/dL Glucose 104 (70-105) mg/dL Calcium 8.5 L (8.6-10.3) mg/dL Consult Discharge Plan - Plan Referrals: NONE,PCP [Primary Care Provider] -
[2018-07-29] MEDS: Piperacillin/Tazobactam 3.375 GM in 0.9 % Sodium Chloride Mini Bag 100 ML IVPB SCH ×3 (00:54→15:50)
[2018-07-29] MEDS: *HR* Heparin 5,000 UNIT/ML VIAL SQ SCH ×2 (06:11→17:17)
[2018-07-29] MEDS: Nicotine 21 MG PATCH.TD24 TD SCH (08:41)
[2018-07-29] MEDS: amLODIPine 5 MG TABLET PO SCH (08:42)
--- NOTE | 2018-07-29 08:52 | Internal Med Progress Note ---
<Jelani Joshua S - Last Filed: 07/29/18 08:46> Hospitalist Progress Note - Encounter Date of Encounter: 07/29/18 Time of Encounter: 08:46 - Subjective Interval History: Pt is a 42yo male with PMH of HTN and IVDU. He has been to rehab for meth abuse in the past. He was recently at [facility] in April for similar symptoms of left dao ed facial swelling. He picks his face when he uses meth and started getting face swelling 2 days ago on the left side of his face, which has been worsening. He states that he has relapsed and that he got a pimple that he popped scratched and then the pimple scabs. His facial swelling is mostly on the left side and under his eyes. He has some pain associated with the abscess. He was treated with oral antibiotics in April. The pt denies any fever, chills, headache, blurry vision, visual loss, C P, SOB, n/v/d, neck stiffness. The pt is seen at bedside and has no acute complaints or concerns. He states he continues to have no visual changes, no chest pain, and no SOB. - Exam Vitals: Temp Pulse Resp BP Pulse Ox 98.4 F 91 15 146/91 99 07/29/18 07:45 07/29/18 07:45 07/29/18 07:45 07/29/18 07:45 07/29/18 07:45 Exam: Gen: Alert, awake, Oriented to time,place and person HEENT / Face: s/p I & D left forehead and nasal bridge abscess with wound packing noticed.. Still has significant swelling and erythema over left side of the face and underneath the eyes Chest: Diminished breath sounds B/L, No wheezing, No crackles, No rales, no rhonchi Heart: S1S2+ RRR No murmurs Abd: Soft, NT, BS +, no rebound or guarding Ext: No edema, pulses are palpable, No calf tenderness Neuro : Benign findings, CN intact, no FND Skin: No rash, multiple scattered tattoos - Assessment and Plan (1) Cellulitis and abscess of face Current Visit: Yes Status: Acute Assessment and Plan: Hx of IVDU meth abuse and picking face continuously - History of MRSA infection the past - recent admission for similar problem in April, resolved with PO abx Pt is s/p I&D of facial abscess x 2 (07/27) Currently the pt meets sepsis criteria for HR and WBC count - afebrile, HR 91, RR 15 - BP stable - white count 12.8 Plan: - blood cx pending - wound cx pending - ENT consulted , recommendations appreciated - continue with Zosyn/Vancomycin day 2 - SW consulted for possible rehab - continue telemetry and close monitoring; pt is a high risk for withdrawal and complications (2) Hypertension Current Visit: No Status: Chronic Assessment and Plan: Stable with current medication - BP 146/91 - continue amlodipine (3) DVT prophylaxis Current Visit: No Status: Acute Assessment and Plan: heparin sc (4) Tobacco dependence Current Visit: No Status: Chronic Assessment and Plan: Counseled to quit smoking placed on nicotine patch (5) Drug use disorder Current Visit: Yes Status: Acute Assessment and Plan: (+) for opiates and amphetamines in urine - continue monitoring for withdrawal symptoms - on CIIN protocol - ativan prn - Time Spent with Patient Total time spent is greater than 50% in coordination of care (as documented) at patient's floor/unit and/or counseling patient: less than 15 minutes Plan of Care Discussed with: patient Internal Medicine: Result - Labs CBC & Chem 7: 07/28/18 05:35 07/28/18 04:14 Labs: Urine 07/28/18 Range/Units 11:15 Urine Color Yellow (Yellow) Urine Clarity Clear (Clear) Urine pH 7.0 (5.0-8.0) pH Units Ur Specific Corbett 1.021 (1.010-1.025) Urine Protein Negative (Neg-Trace) mg/dL Urine Glucose (UA) Normal (Normal) mg/dL - ABG Interpretation ABG results: PT/INR, D-dimer PT 13.3 Seconds (9.4-12.1) H 07/28/18 04:14 Consult Discharge Plan - Plan Referrals: NONE,PCP [Primary Care Provider] - <Lacho Napoles - Last Filed: 07/29/18 14:21> Hospitalist Progress Note - Encounter Date of Encounter: 07/29/18 Time of Encounter: 10:00 - Exam Vitals: Temp Pulse Resp BP Pulse Ox 98.1 F 83 15 148/91 98 07/29/18 10:51 07/29/18 10:51 07/29/18 10:51 07/29/18 10:51 07/29/18 10:51 - Assessment and Plan (1) Hypertension Current Visit: No Status: Chronic (2) DVT prophylaxis Current Visit: No Status: Acute (3) Tobacco dependence Current Visit: No Status: Chronic (4) Cellulitis and abscess of face Current Visit: Yes Status: Acute (5) Drug use disorder Current Visit: Yes Status: Acute - Time Spent with Patient Total time spent is greater than 50% in coordination of care (as documented) at patient's floor/unit and/or counseling patient: Internal Medicine: Result - Labs CBC & Chem 7: 07/28/18 05:35 07/28/18 04:14 - ABG Interpretation ABG results: PT/INR, D-dimer PT 13.3 Seconds (9.4-12.1) H 07/28/18 04:14 - Attending Attestation I saw evaluated and examined this patient and my medical decision-making was reviewed with the Resident Physician, Jelani Joshua. I agree with the documented findings, disposition and treatment plan as described except to any changes set forth below. We independently had [id number] contact with the patient. Patient continues to have swelling on the left side of his face and nose but it has improved compared to yesterday. He has been having nausea and vomiting since this morning. He denies any abdominal pain. No fever or chills reported overnight. No chest pain or palpitations. No shortness of breath. On exam, patient has erythema and swelling on the left side of his upper face or around his eyelid and also swelling on the left side of his nose with some drainage. Heart sounds are normal. S1 and S2 audible. Regular rate and rhythm. Breath sounds are normal. No pedal edema noted. Cellulitis of the face with abscess: Status post incision and drainage. ENT following. Patient is on vancomycin and Zosyn. We will continue these antibiotics for another day. Reportedly, patient has a history of MRSA. On however he does not recollect if he ever had MRSA. He reports that he has always been hospitalized here at but has not had any positive cultures for MRSA. His nasal screen is however positive for MRSA. Moderate risk for complications. Nausea and vomiting: Intractable. We will treat symptomatically with Zofran and Phenergan. History of IV drug abuse: Monitor for signs of withdrawal. roller shop utility worker consult. Essential hypertension: Blood pressure is elevated. Continue amlodipine. We will increase dosage to 10 mg.
--- NOTE | 2018-07-29 11:21 | ENT - Progress Note ---
Date of Encounter: 07/29/18 Time of Encounter: 11:19 - Assessment and Plan (1) Cellulitis and abscess of face Current Visit: Yes Status: Acute Patient seen and examined at bedside today. Packing changed to left nasal sidewall I&D site. Some purulence expressed from I&D site of left forehead and I&D site of left nasal sidewall. Patient's overall facial and periorbital edema decreased from yesterday. Areas of induration at I&D sites are also reducing in size. Continue IV antibiotics per primary care team at this time. Patient was previously MRSA positive. Will continue to monitor for improvement and perform scheduled packing change to I&D site. Subjective Patient reports: no new complaints, still having pain, other (patient reports continued decrease in swelling of the face and area around left eye) Objective Initial Vital Signs Temp Pulse Resp BP Pulse Ox 98.1 F 98 16 167/115 100 07/27/18 03:58 07/27/18 03:58 07/27/18 03:58 07/27/18 03:58 07/27/18 03:58 - General physical appearance no distress - Eyes other (periorbital edema decreased from yesterday exam, patient denies any vision changes), PERRL, normal ocular movement - ENT CN 2-12 grossly intact, Other (&D site #1: Area involving the left eyebrow, Approximately 2 cm in size today, with subtle decreasing induration noted, some purulent drainage expressed today from previos I&D site above left eyebrow. I&D site #2: the left nasal side wall with subtle induration noted, approximately 3 cm in size today (decreased from yesterday's exam), some purulent drainage expressed from centralized portion at I&D site. )) - Neck no masses, trachea midline, no lymphadectomy - Respiratory normal expansion, normal respiratory effort - Labs 07/28/18 05:35 07/28/18 04:14 Consult Discharge Plan - Plan Referrals: NONE,PCP [Primary Care Provider] -
[2018-07-29] MEDS: traMADol 50 MG TABLET PO PRN (11:22)
[2018-07-29] MEDS: Ondansetron 4 MG/2 ML VIAL IVP PRN ×2 (12:18→22:02)
[2018-07-29] MEDS: *HR* Promethazine 25 MG/ML VIAL IVP PRN ×2 (13:29→18:45)
[2018-07-29] MEDS ORDERED: *HR* LORazepam 2 MG/ML VIAL IVP ONE (20:17)
[2018-07-30] MEDS: Piperacillin/Tazobactam 3.375 GM in 0.9 % Sodium Chloride Mini Bag 100 ML IVPB SCH ×3 (00:20→19:44)
[2018-07-30] MEDS: *HR* Promethazine 25 MG/ML VIAL IVP PRN ×2 (02:16→09:10)
--- NOTE | 2018-07-30 03:22 | Event Note ---
Date of Encounter: 07/30/18 Time of Encounter: 02:40 Notified by nurse of patient vomiting what appeared to be blood. Patient assessed at bedside, no current complaints, or known previous history of vomiting blood. Vitals remain stable and unchanged. Nurse reports patient has been repeatedly dry heaving with occasional vomiting, but this is first time it appeared to contain blood. Morning labs scheduled for 0400, called lab to draw labs now.
[2018-07-30 03:27] LABS: Basophils % 0.2 %; Hematocrit 34.9 % (37.5-50.1); Hemoglobin 11.7 g/dL (12.9-16.9); Immature Granulocytes % 0.3 % (0-4); Immature Platelets 1.4 % (1.1-6.1); Lymphocytes # 2.1 K/mcL (0.6-4.6); Mean Corpuscular HGB Conc 33.5 g/dL (31.6-35.5); Mean Corpuscular Hemoglobin 28.7 pg (28.0-33.3); Mean Corpuscular Volume 85.7 fL (83.0-100.0); Mean Platelet Volume 9.5 fL (9.4-12.4); Monocytes # 0.7 K/mcL (0.0-1.3); Monocytes % 6.6 %; Neutrophils # 7.8 K/mcL (1.6-8.9); Platelet Count 450 K/mcL (140-400); Red Blood Count 4.07 M/mcL (4.19-5.50); Red Cell Distribution Width 13.1 % (11.5-14.5); Segmented Neutrophils % 72.9 %
[2018-07-30 03:46] LABS: BUN/Creatinine Ratio 24 (6-26); Blood Urea Nitrogen 17 mg/dL (6-20); Calcium 9.1 mg/dL (8.6-10.3); Carbon Dioxide 28 mEq/L (23-29); Chloride 104 mEq/L (98-107); Glucose 126 mg/dL (70-105); Osmolality,Calculated 295 (280-300); Sodium 141 mEq/L (136-145); eGFR For Non-African Americans > 60 (> 60)
[2018-07-30] MEDS: Ondansetron 4 MG/2 ML VIAL IVP PRN (04:37)
[2018-07-30] MEDS: *HR* Heparin 5,000 UNIT/ML VIAL SQ SCH ×2 (06:48→18:04)
[2018-07-30] MEDS: Nicotine 21 MG PATCH.TD24 TD SCH (09:09)
[2018-07-30] MEDS: amLODIPine 5 MG TABLET PO SCH (09:09)
[2018-07-30] MEDS: Pantoprazole 40 MG VIAL IVP SCH ×2 (09:10→18:04)
--- NOTE | 2018-07-30 10:14 | Internal Med Progress Note ---
<Jelani Joshua S - Last Filed: 07/30/18 11:56> Hospitalist Progress Note - Encounter Date of Encounter: 07/30/18 Time of Encounter: 10:12 - Subjective Interval History: Pt is a 42yo male with PMH of HTN and IVDU. He has been to rehab for meth abuse in the past. He was recently at [facility] in April for similar symptoms of left dao ed facial swelling. He picks his face when he uses meth and started getting face swelling 2 days ago on the left side of his face, which has been worsening. He states that he has relapsed and that he got a pimple that he popped scratched and then the pimple scabs. His facial swelling is mostly on the left side and under his eyes. He has some pain associated with the abscess. He was treated with oral antibiotics in April. The pt denies any fever, chills, headache, blurry vision, visual loss, C P, SOB, n/v/d, neck stiffness. The pt is seen at bedside and has no acute complaints. He states he continues to have no visual changes, no chest pain, and no SOB. - overnight had episode of nausea/dry heaving with one episode of blood in the vomitus - pt says he is doing much better this morning, but is very nauseous - ENT saw him and found a new soft tissue spot on the nose - Exam Vitals: Temp Pulse Resp BP Pulse Ox 98.3 F 70 16 144/81 100 07/30/18 07:43 07/30/18 07:43 07/30/18 07:43 07/30/18 07:43 07/30/18 07:43 Exam: Gen: Alert, awake, Oriented to time,place and person HEENT / Face: s/p I & D left forehead and nasal bridge abscess with wound packing noticed.. Still has significant swelling and erythema over left side of the face and underneath the eyes, although it appears to be improving Chest: Diminished breath sounds B/L, No wheezing, No crackles, No rales, no rhonchi Heart: S1S2+ RRR No murmurs Abd: Soft, NT, BS +, no rebound or guarding Ext: No edema, pulses are palpable, No calf tenderness Neuro : Benign findings, CN intact, no FND Skin: No rash, multiple scattered tattoos - Assessment and Plan (1) Cellulitis and abscess of face Current Visit: Yes Status: Acute Assessment and Plan: Hx of IVDU meth abuse and picking face continuously - History of MRSA infection the past - recent admission for similar problem in April, resolved with PO abx Pt is s/p I&D of facial abscess x 2 (07/27) Currently the pt does NOT meet sepsis criteria - afebrile, HR 70, RR 16 - BP stable - white count 10.7 New area of soft tissue swelling noticed by ENT this morning on the nose, will continue to monitor for abscess formation Plan: - blood cx pending - wound cx pending - ENT consulted , recommendations appreciated - continue with Zosyn/Vancomycin day 4 - SW consulted for possible rehab - continue telemetry and close monitoring; pt is a high risk for withdrawal and complications - dispo: toleration of PO abx and PO intake, pt continues to have intractible vomiting (2) Nausea & vomiting Current Visit: Yes Status: Acute Assessment and Plan: Pt has been having intractible nausea and vomiting - overnight reports of bloody vomitus and pt is having trouble keeping anything down Plan: - continue phenergan and zofran prn nausea - IV protonix 40mg q12hr - clear liquid diet as tolerated - not being able to tolerate PO intake increases severity of pt condition , continue to monitor the pt and will wait for PO intake to be tolerated before starting PO abx (3) Hypertension Current Visit: No Status: Chronic Assessment and Plan: Stable with current medication - BP 144/81 - continue amlodipine (4) DVT prophylaxis Current Visit: No Status: Acute Assessment and Plan: heparin sc (5) Tobacco dependence Current Visit: No Status: Chronic Assessment and Plan: Counseled to quit smoking placed on nicotine patch (6) Drug use disorder Current Visit: Yes Status: Acute Assessment and Plan: (+) for opiates and amphetamines in urine - continue monitoring for withdrawal symptoms - on CIWA protocol - ativan prn (7) Hypokalemia Current Visit: Yes Status: Acute Assessment and Plan: Potassium 3.0 this morning - replaced PO - check BMP in AM - Time Spent with Patient Total time spent is greater than 50% in coordination of care (as documented) at patient's floor/unit and/or counseling patient: less than 15 minutes Plan of Care Discussed with: patient Internal Medicine: Result - Labs CBC & Chem 7: 07/30/18 03:05 07/30/18 03:05 Labs: Short CBC 07/30/18 Range/Units 03:05 WBC 10.7 (4.3-11.1) K/mcL Hgb 11.7 L (12.9-16.9) g/dL Hct 34.9 L (37.5-50.1) % Plt Count 450 H (140-400) K/mcL Neutrophils # 7.8 (1.6-8.9) K/mcL BMP 07/30/18 03:05 Sodium 141 Potassium 3.0 L Chloride 104 Carbon Dioxide 28 BUN 17 Creatinine 0.72 Glucose 126 H Calcium 9.1 - ABG Interpretation ABG results: PT/INR, D-dimer PT 13.3 Seconds (9.4-12.1) H 07/28/18 04:14 Consult Discharge Plan - Plan Referrals: NONE,PCP [Primary Care Provider] - <Lacho Napoles - Last Filed: 07/30/18 15:28> Hospitalist Progress Note - Encounter Date of Encounter: 07/30/18 Time of Encounter: 15:10 - Exam Vitals: Temp Pulse Resp BP Pulse Ox 97.9 F 66 16 120/74 97 07/30/18 11:02 07/30/18 11:02 07/30/18 11:02 07/30/18 11:02 07/30/18 11:02 - Assessment and Plan (1) Hypertension Current Visit: Yes Status: Chronic (2) DVT prophylaxis Current Visit: No Status: Acute (3) Tobacco dependence Current Visit: No Status: Chronic (4) Cellulitis and abscess of face Current Visit: Yes Status: Acute (5) Drug use disorder Current Visit: Yes Status: Acute (6) Nausea & vomiting Current Visit: Yes Status: Acute (7) Hypokalemia Current Visit: Yes Status: Acute - Time Spent with Patient Total time spent is greater than 50% in coordination of care (as documented) at patient's floor/unit and/or counseling patient: Internal Medicine: Result - Labs CBC & Chem 7: 07/30/18 03:05 07/30/18 03:05 Labs: Short CBC 07/30/18 Range/Units 03:05 WBC 10.7 (4.3-11.1) K/mcL Hgb 11.7 L (12.9-16.9) g/dL Hct 34.9 L (37.5-50.1) % Plt Count 450 H (140-400) K/mcL Neutrophils # 7.8 (1.6-8.9) K/mcL BMP 07/30/18 03:05 Sodium 141 Potassium 3.0 L Chloride 104 Carbon Dioxide 28 BUN 17 Creatinine 0.72 Glucose 126 H Calcium 9.1 - ABG Interpretation ABG results: PT/INR, D-dimer PT 13.3 Seconds (9.4-12.1) H 07/28/18 04:14 - Attending Attestation I saw evaluated and examined this patient and my medical decision-making was reviewed with the Resident Physician, Jelani Joshua. I agree with the documented findings, disposition and treatment plan as described except to any changes set forth below. We independently had [id number] contact with the patient. Patient is awake and alert. Continues to have intractable nausea/ vomiting. Denies abdominal pain. Denies hematemesis. Swelling on the left side of the face is improving. I& D site on left nose still draining purulent fluid. On exam, erythema and swelling on the left side of the face are improving. Patient does continue to have purulent drainage from the site of incision and drainage on his left nasal folds. Heart sounds are normal. S1 and S2 audible. Regular rate and rhythm. Breath sounds are normal. No pedal edema noted. Cellulitis of the face with abscess: Status post incision and drainage. Continue current antibiotics. Follow ENT recommendations. Local wound care and packing per ENT recommendations. Moderate risk for complications. Nausea and vomiting: Intractable. Patient may have underlying esophagitis or gastritis. Continue to treat symptomatically. Place patient on clears only. Also started on IV PPI. History of IV drug abuse: Monitor for signs of withdrawal. public health social worker consult. Essential hypertension: Blood pressure improves this afternoon. Will continue amlodipine at 10 mg per day.
--- NOTE | 2018-07-30 14:20 | ENT - Progress Note ---
Date of Encounter: 07/30/18 Time of Encounter: 07:45 - Assessment and Plan (1) Cellulitis and abscess of face Current Visit: Yes Status: Acute Patient seen and examined at bedside today. Patient's overall facial and periorbital edema continue to decrease with near resolution of periorbital edema. New open area noted to left nasal sidewall. No palpated area of induration noted at forehead I&D site, <1cm area of induration noted to I&D site on left nasal sidewall, no purulent drainage expressed today. Recommended wound care orders were briefly discussed with wound care nurse, will cleanse open wounds with microcleanse, and pack open areas of left nasal sidewall with Mesalt packing ribbon (cut to half width), and cover with to be 2x2 dressing. Should continue packing until wound bed is clear of slough. Apply mupirocin ointment to I&D site on forehead BID, continue 7-10 days or until wound is completely closed. Discussed possible discharge tomorrow with hospitalist, patient is to follow up with internal med/resident's clinic at discharge for continued wound care orders for home health. Continue IV antibiotics per primary care team at this time. Will continue scheduled packing change to I&D site until discharge. Subjective Patient reports: feels better, still having pain, other (patient reports swelling of eyes continues to decrease) Objective Initial Vital Signs Temp Pulse Resp BP Pulse Ox 98.1 F 98 16 167/115 100 07/27/18 03:58 07/27/18 03:58 07/27/18 03:58 07/27/18 03:58 07/27/18 03:58 - General physical appearance no distress - Eyes other (Periorbital swelling nearly resolved at this time.), PERRL, normal ocular movement - ENT CN 2-12 grossly intact, Other (NOSE: patient with new open area <0.5cm in size slightly superior to the supra alar crease noted, wound bed base with exposed fibrous fatty tissue no purulent drainage expressed. &D site #1: Area superior to the left eyebrow, no induration noted today, no purulent drainage. I&D site #2: the left nasal side wall with subtle induration noted, <1 cm in size today, wound bed base with exposed fibrous fatty tissue, No purulent drainage expressed from I&D site today. ) - Neck trachea midline, no lymphadectomy - Respiratory normal expansion, normal respiratory effort - Labs 07/30/18 03:05 07/30/18 03:05 Diabetes panel 07/30/18 Range/Units 03:05 Sodium 141 (136-145) mEq/L Potassium 3.0 L (3.5-5.1) mEq/L Chloride 104 (98-107) mEq/L Carbon Dioxide 28 (23-29) mEq/L BUN 17 (6-20) mg/dL Creatinine 0.72 (0.70-1.30) mg/dL Glucose 126 H (70-105) mg/dL Calcium 9.1 (8.6-10.3) mg/dL Calcium panel 07/30/18 Range/Units 03:05 Calcium 9.1 (8.6-10.3) mg/dL Pituitary panel 07/30/18 Range/Units 03:05 Sodium 141 (136-145) mEq/L Potassium 3.0 L (3.5-5.1) mEq/L Chloride 104 (98-107) mEq/L Carbon Dioxide 28 (23-29) mEq/L BUN 17 (6-20) mg/dL Creatinine 0.72 (0.70-1.30) mg/dL Glucose 126 H (70-105) mg/dL Calcium 9.1 (8.6-10.3) mg/dL Adrenal panel 07/30/18 Range/Units 03:05 Sodium 141 (136-145) mEq/L Potassium 3.0 L (3.5-5.1) mEq/L Chloride 104 (98-107) mEq/L Carbon Dioxide 28 (23-29) mEq/L BUN 17 (6-20) mg/dL Creatinine 0.72 (0.70-1.30) mg/dL Glucose 126 H (70-105) mg/dL Calcium 9.1 (8.6-10.3) mg/dL Consult Discharge Plan - Plan Referrals: NONE,PCP [Primary Care Provider] -
[2018-07-30] MEDS ORDERED: Potassium Chloride 40 MEQ, Lidocaine 1% 2 ML in D5% in Water 500 ML IVPB ONE ×2 (14:57→15:18)
[2018-07-31] MEDS: Piperacillin/Tazobactam 3.375 GM in 0.9 % Sodium Chloride Mini Bag 100 ML IVPB SCH ×2 (03:54→11:55)
[2018-07-31] MEDS: *HR* Heparin 5,000 UNIT/ML VIAL SQ SCH (05:37)
[2018-07-31] MEDS: Pantoprazole 40 MG VIAL IVP SCH (05:37)
[2018-07-31 06:35] LABS: Basophils % 0.3 %; Eosinophils # 0.1 K/mcL (0.0-0.6); Eosinophils % 0.6 %; Hematocrit 37.9 % (37.5-50.1); Hemoglobin 12.6 g/dL (12.9-16.9); Immature Granulocytes % 0.8 % (0-4); Lymphocytes % 17.2 %; Mean Corpuscular HGB Conc 33.2 g/dL (31.6-35.5); Mean Corpuscular Hemoglobin 28.9 pg (28.0-33.3); Mean Corpuscular Volume 86.9 fL (83.0-100.0); Mean Platelet Volume 9.3 fL (9.4-12.4); Monocytes # 0.8 K/mcL (0.0-1.3); Monocytes % 6.8 %; Neutrophils # 8.6 K/mcL (1.6-8.9); Platelet Count 407 K/mcL (140-400); Red Blood Count 4.36 M/mcL (4.19-5.50); Segmented Neutrophils % 74.3 %
[2018-07-31 06:55] LABS: BUN/Creatinine Ratio 19 (6-26); Blood Urea Nitrogen 13 mg/dL (6-20); Calcium 8.6 mg/dL (8.6-10.3); Carbon Dioxide 27 mEq/L (23-29); Chloride 104 mEq/L (98-107); Glucose 154 mg/dL (70-105); Osmolality,Calculated 289 (280-300); Potassium 2.9 mEq/L (3.5-5.1); Sodium 138 mEq/L (136-145); eGFR For Non-African Americans > 60 (> 60)
[2018-07-31 07:45] VITALS: BP 152/96
[2018-07-31] MEDS: amLODIPine 5 MG TABLET PO SCH (09:11)
[2018-07-31] MEDS: Nicotine 21 MG PATCH.TD24 TD SCH (09:11)
--- NOTE | 2018-07-31 10:53 | Discharge Summary ---
<Kay Gordillo E - Last Filed: 07/31/18 10:51> Orders not resulted at time of discharge: Pending orders 07/27/18 04:49 Culture,Blood [] Stat Date of Encounter: 07/31/18 Time of Encounter: 09:00 - Discharge Diagnosis (1) Cellulitis and abscess of face Priority: Primary Status: Acute (2) Drug use disorder Priority: Secondary Status: Chronic (3) Hypokalemia Priority: Primary Status: Acute (4) Hypertension Priority: Secondary Status: Chronic Qualifiers: Hypertension type: essential hypertension Qualified Code(s): I10 - Essential (primary) hypertension (5) Tobacco dependence Priority: Secondary Status: Chronic Hospital course: Pt is a 42yo male with PMH of HTN and IVDU. He has been to rehab for meth abuse in the past. He was recently at [facility] in April for similar symptoms of left sided facial swelling. He picks his face when he uses meth and started getting face swelling 2 days ago on the left side of his face, which has been worsening. He states that he has relapsed and that he got a pimple that he popped scratched and then the pimple scabs. His facial swelling is mostly on the left side and under his eyes. He has some pain associated with the abscess. He was treated with oral antibiotics in April. The pt denies any fever, chills, headache, blurry vision, visual loss, CP, SOB, n/v/d, neck stiffness. Was treated wtih piperacillin/tazobactam and vancomycin in hospital with ID of forehead abcess adn nasal packing of the nasal fold area. The pt is seen at bedside and has no acute complaints. He states he continues to have no visual changes, no chest pain, and no SOB. Denies anymore vomiting/dryheaves. States he is doing much better. Will be discharged with Home health as he will need help with packing of the nasal area. Augmentin adn Doxycyclin for 14 days with same day follow up with same day PCP appointment and f/u with ENT within 1 week. - Time Spent with Patient Total time spent providing and/or coordinating discharge services: - Discharge Medications Prescriptions: Amoxicillin/Clavulanate [Augmentin] 875 mg PO BIDWM 14 Days #28 tablet Doxycycline 100 mg PO BID 14 Days #28 capsule Home Medications: Amoxicillin/Clavulanate [Augmentin] 875 mg PO BIDWM 14 Days #28 tablet 07/31/18 [Rx] Doxycycline 100 mg PO BID 14 Days #28 capsule 07/31/18 [Rx] amLODIPine [Norvasc] 10 mg PO DAILY tablet 07/31/18 [Rx] Allergies/Adverse Reactions: Allergy/AdvReac Type Severity Reaction Status Date / Time No Known Allergies Allergy Verified 07/27/18 10:39 Date of admission: 07/28/18 12:55 Primary care physician: PCP NONE Consults: 07/30/18 10:24 Consult to Robot Technician [CONS] Routine Reason for SW Consult: hx IVDU, meth/heroin - possible substance abuse rehab / resources? Discharging clinician: Lacho Napoles Anticipated date of discharge: 07/31/18 - Constitutional Vitals: Temp Pulse Resp BP Pulse Ox 97.6 F 61 16 152/96 99 07/31/18 07:42 07/31/18 07:42 07/31/18 07:42 07/31/18 07:42 07/31/18 07:42 Exam: Gen: Alert, awake, Oriented to time,place and person HEENT / Face: s/p I & D left forehead and nasal bridge abscess with wound packing noticed.. Improving periorbital and left sided facial swelling Chest: CTAB, No wheezing, No crackles, No rales, no rhonchi Heart:RRR No murmurs, rubs, or gallops Abd: Soft, NT, BS +, no rebound or guarding Ext: No edema, pulses are palpable, No calf tenderness Skin: No rash, multiple scattered tattoos adn scarring on hands - Patient Status Disposition: Home, Self-Care Condition: Good Functional capacity at discharge: independent ambulation Overall status at discharge: patient is progressing back to baseline - Discharge Instructions Instructions: Abscess (GEN) Follow Up With: Alyx Rodriguez CNP [Advanced Practice Nurse] - 08/06/18 8:30 am Itzel Ross DO [Resident] - 07/31/18 2:40 pm (You have a hospital follow up appointment with Dr. Ross; please arrive at 2:20 PM to fill out paperwork. You must see this Physician in order to get Home Health through [facility] set up for wound care (packing daily). Please bring your insurance card, ID, and any medications you're currently taking. ) Additional Instructions: TAke your antibiotics as prescribed and finish all antibiotics unless told not to by your doctor Follow up with your your primary care doctor as directed today Follow up with ENT as directed - Diet and Activity Activity: increase activity as tolerated Diet: other (Full liquid diet) <Kaylan Napolesjoni - Last Filed: 07/31/18 12:13> - NOTES TO OUTPATIENT PROVIDER Notes to Outpatient Provider: Patient hospitalized with cellulitis and abscess involving the left side of his face. Status post incision and drainage. Will need outpatient follow-up with PCP and ENT after discharge. We will be dischar ged on Augmentin and doxycycline. Orders not resulted at time of discharge: Pending orders 07/27/18 04:49 Culture,Blood [BC] Stat Date of Encounter: 07/31/18 Time of Encounter: 09:10 - Discharge Diagnosis (1) Hypertension Status: Chronic Qualified Code(s): I10 - Essential (primary) hypertension (2) DVT prophylaxis Status: Acute (3) Tobacco dependence Status: Chronic (4) Cellulitis and abscess of face Status: Acute (5) Drug use disorder Status: Chronic (6) Nausea & vomiting Status: Acute (7) Hypokalemia Status: Acute Hospital course: Mr. Crowley is a 42 year old male Discharge discussed with: patient - Time Spent with Patient Total time spent providing and/or coordinating discharge services: Less than 30 minutes (10 min) Date of admission: 07/28/18 12:55 Primary care physician: PCP NONE Consults: 07/30/18 10:24 Consult to Robot Technician [CONS] Routine Reason for SW Consult: hx IVDU, meth/heroin - possible substance abuse rehab / resources? - Constitutional Vitals: Temp Pulse Resp BP Pulse Ox 97.6 F 61 16 152/96 99 07/31/18 07:42 07/31/18 07:42 07/31/18 07:42 07/31/18 07:42 07/31/18 07:42 - ENT Additional comments: Significantly improved swelling over the left side of his face. Wants have been cleaned and bandaged - Neck Neck exam general surgery: Present: supple, trachea midline. Absent: lymphadenopathy - Attending Attestation I saw evaluated and examined this patient and my medical decision-making was reviewed with the Resident Physician, Kay Gordillo. I agree with the documented findings, disposition and treatment plan as described except to any changes set forth below. We independently had [id number] contact with the patient. Patient with history of methamphetamine abuse presented to the ER with complaints of facial cellulitis and abscess. He was evaluated by ENT and had incision and drainage done. Patient had couple of abscesses over his forearm and left nose. Wound cultures have been negative so far. Patient's symptoms have significantly improved since admission. He is now stable to be discharged home. He will need to continue wound care per ENT recommendations. Patient also had intractable nausea and vomiting for the past couple of days. He was treated with PPI and may have underlying esophagitis/gastritis. At this time he is able to swallow and keep down his pills and is tolerating clear liquid diet. He is advised to continue to advance his diet slowly and will be discharged on PPI. marriage and family social worker is making arrangements for home health to help with his wound packing.
[2018-07-31] MEDS ORDERED: Doxycycline 100 MG CAPSULE PO SCH (11:00)
--- NOTE | 2018-07-31 11:11 | Physician Discharge Referral ---
<RobertsukhKay harmon E - Last Filed: 07/31/18 11:09> Home Health/Hosp Referral Info Transfer to: Home Health Provider in Charge Post Discharge: PCP - Diagnosis (1) Cellulitis and abscess of face Priority: Primary Status: Acute (2) Drug use disorder Priority: Secondary Status: Chronic (3) Hypokalemia Priority: Secondary Status: Acute (4) Hypertension Priority: Secondary Status: Chronic (5) Tobacco dependence Priority: Secondary Status: Chronic - Respiratory Orders None Smoking Cessation: Smoking cessation has been advised. For more information, call the [place] Tobacco Quit Line at 1-875-INPI-NOW. - Dressing/Wound Care Site: Left forehead and nasal fold Type of Dressing/Treatments w/Frequency: cleanse open wounds with microcleanse, and pack open areas of left nasal sidewall with Mesalt packing ribbon (cut to half width), and cover with to be 2x2 dressing. Should continue packing until wound bed is clear of slough. Apply mupirocin ointment to I&D site on forehead BID, continue 7-10 days or until wound is completely closed. - Diet/Nutrition Diet/Nutrition: List: Full liquids for next few days than can progress - Activity Activity Orders: Up ad shilpa - Services Needed Following services are medically necessary services: [facility] Care Orders: For wound packing - Transfer Medications Prescriptions: Amoxicillin/Clavulanate [Augmentin] 875 mg PO BIDWM 14 Days #28 tablet Doxycycline 100 mg PO BID 14 Days #28 capsule Lactobacillus Acidophilus [Acidophilus] 1 each PO BID #30 capsule Omeprazole [PriLOSEC] 40 mg PO DAILY #30 cap Home Medications: Amoxicillin/Clavulanate [Augmentin] 875 mg PO BIDWM 14 Days #28 tablet 07/31/18 [Rx] Doxycycline 100 mg PO BID 14 Days #28 capsule 07/31/18 [Rx] Lactobacillus Acidophilus [Acidophilus] 1 each PO BID #30 capsule 07/31/18 [Rx] Omeprazole [PriLOSEC] 40 mg PO DAILY #30 cap 07/31/18 [Rx] amLODIPine [Norvasc] 10 mg PO DAILY tablet 07/31/18 [Rx] Allergies/Adverse Reactions: Allergy/AdvReac Type Severity Reaction Status Date / Time No Known Allergies Allergy Verified 07/27/18 10:39 Certification: Further, I certify that my clinical findings support that this patient is ho mebound (i.e. absences from home require considerable and taxing effort and are for medical reasons or adventism services or infrequently or short duration when for other reasons) because: Homebound Reason: Patient requires assistance of a person or device to safely leave home (Wound packing on face will need home health nurse assistance) Attestation: My signature below is to certify that this patient is under my care and that I, or nurse practitioner, or a physician's office support assistant working with me, has a [id number] encounter with this patient. <Lacho Napoles - Last Filed: 07/31/18 12:19> - Diagnosis (1) Hypertension Status: Chronic (2) DVT prophylaxis Status: Acute (3) Tobacco dependence Status: Chronic (4) Cellulitis and abscess of face Status: Acute (5) Drug use disorder Status: Chronic (6) Nausea & vomiting Status: Acute (7) Hypokalemia Status: Acute - Respiratory Orders Smoking Cessation: Smoking cessation has been advised. For more information, call the [place] Tobacco Quit Line at 3-574-VXML-NOW. Certification: Further, I certify that my clinical findings support that this patient is homebound (i.e. absences from home require considerable and taxing effort and are for medical reasons or adventism services or infrequently or short duration when for other reasons) because: Attestation: My signature below is to certify that this patient is under my care and that I, or nurse practitioner, or a physician's office support assistant working with me, has a [id number] encounter with this patient.
--- NOTE | 2018-07-31 13:09 | ENT - Progress Note ---
Date of Encounter: 07/31/18 Time of Encounter: 12:00 - Assessment and Plan (1) Cellulitis and abscess of face Current Visit: Yes Status: Acute Patient seen and examined at bedside today. Patient's periorbital edema has resolved. Facial cellulitis has also resolved. No palpated induration noted at forehead or nasal wall I&D site. Wound care with open wound packing completed today. Wound care: cleanse open wounds with microcleanse, and pack open areas of left nasal sidewall with Mesalt packing ribbon (cut to half width), and cover with to be 2x2 dressing. Should continue packing until wound bed is clear of slough. Apply mupirocin ointment to I&D site on forehead BID, continue 7-10 days or until wound is completely closed. patient is to follow up with internal med/resident's clinic at discharge for continued wound care orders for home health. No further follow up by ENT warranted. Subjective Patient reports: feels better, pain is less Objective Initial Vital Signs Temp Pulse Resp BP Pulse Ox 98.1 F 98 16 167/115 100 07/27/18 03:58 07/27/18 03:58 07/27/18 03:58 07/27/18 03:58 07/27/18 03:58 - General physical appearance well developed, well nourished, no distress - Eyes other (No periorbital swelling noted. ), PERRL, normal ocular movement - ENT CN 2-12 grossly intact, Other (patient with open area <0.5cm in size slightly superior to the supra alar crease noted, packing changed today, wound bed base with exposed fibrous fatty tissue no purulent drainage expressed. I&D site #1: Area superior to the left eyebrow, healing well, no induration noted today, no purulent drainage, site is closed. I&D site #2: the left nasal side wall, packing changed, no induration noted, wound bed base with exposed fibrous fatty tissue, No purulent drainage expressed today.) - Neck no masses, trachea midline, no lymphadectomy - Respiratory normal expansion, normal respiratory effort - Labs 07/31/18 05:58 07/31/18 05:58 Diabetes panel 07/31/18 Range/Units 05:58 Sodium 138 (136-145) mEq/L Potassium 2.9 L (3.5-5.1) mEq/L Chloride 104 (98-107) mEq/L Carbon Dioxide 27 (23-29) mEq/L BUN 13 (6-20) mg/dL Creatinine 0.70 (0.70-1.30) mg/dL Glucose 154 H (70-105) mg/dL Calcium 8.6 (8.6-10.3) mg/dL Calcium panel 07/31/18 Range/Units 05:58 Calcium 8.6 (8.6-10.3) mg/dL Pituitary panel 07/31/18 Range/Units 05:58 Sodium 138 (136-145) mEq/L Potassium 2.9 L (3.5-5.1) mEq/L Chloride 104 (98-107) mEq/L Carbon Dioxide 27 (23-29) mEq/L BUN 13 (6-20) mg/dL Creatinine 0.70 (0.70-1.30) mg/dL Glucose 154 H (70-105) mg/dL Calcium 8.6 (8.6-10.3) mg/dL Adrenal panel 07/31/18 Range/Units 05:58 Sodium 138 (136-145) mEq/L Potassium 2.9 L (3.5-5.1) mEq/L Chloride 104 (98-107) mEq/L Carbon Dioxide 27 (23-29) mEq/L BUN 13 (6-20) mg/dL Creatinine 0.70 (0.70-1.30) mg/dL Glucose 154 H (70-105) mg/dL Calcium 8.6 (8.6-10.3) mg/dL Consult Discharge Plan - Plan Instructions: Abscess (GEN) Additional Instructions: TAke your antibiotics as prescribed and finish all antibiotics unless told not to by your doctor Follow up with your your primary care doctor as directed today Follow up with ENT as directed Referrals: Alyx Rodriguez CNP [Advanced Practice Nurse] - 08/06/18 8:30 am Itzel Ross DO [Resident] - 07/31/18 2:40 pm (You have a hospital follow up appointment with Dr. Ross; please arrive at 2:20 PM to fill out paperwork. You must see this Physician in order to get Home Health through [facility] set up for wound care (packing daily). Please bring your insurance card, ID, and any medi cations you're currently taking. ) Prescriptions: Amoxicillin/Clavulanate [Augmentin] 875 mg PO BIDWM 14 Days #28 tablet Doxycycline 100 mg PO BID 14 Days #28 capsule Lactobacillus Acidophilus [Acidophilus] 1 each PO BID #30 capsule Omeprazole [PriLOSEC] 40 mg PO DAILY #30 cap
[2018-07-31] MEDS ORDERED: Aminoglycoside Consult 1 EACH MC ONE (14:13)
== END 2018-07-31 14:14 | disposition home or self-care (01) | DRG 383 ==
LOC: EMEROOARM 03:53 → 3BNU 03:53 → SUATTDRO 07-28 12:55 → 3ANU 07-28 21:47
PROVIDERS: ADMIT Internal Medicine; ATTEND Internal Medicine

== ENCOUNTER 2018-08-01 16:06 | Observation (INO) ==
[2018-08-01] MEDS ORDERED: Ondansetron ODT 4 MG TAB.RAPDIS SL ONE (16:27)
[2018-08-01] MEDS ORDERED: GI Cocktail 40 ML EACH PO ONE (16:29)
--- NOTE | 2018-08-01 17:53 | Emergency Department Note ---
Disposition Clinical Impression: Facial cellulitis Nausea and vomiting Qualifiers: Vomiting type: unspecified Vomiting Intractability: intractable Qualified Code(s): R11.2 - Nausea with vomiting, unspecified Disposition: Admitted As Inpatient Condition: Fair General Adult HPI - General Chief complaint: ED Nausea/Vomiting/Diarrhea Stated complaint: n/v Time Seen by Provider: 08/01/18 16:15 Source: patient Limitations: no limitations Nursing Notes Reviewed: Yes Vital Signs Reviewed: Yes - History of Present Illness HPI Narrative: 42-year-old male with history of methamphetamine abuse who presents the emergency department with nausea and vomiting. He was discharged yesterday from this hospital following treatment for left facial cellulitis. He currently has his nasal wound packed but has been unable to keep down his medications or fluids at home to his nausea. Otherwise denies any fever, chills, chest pain, shortness breath, abdominal pain, diarrhea, epistaxis. Pain Scale: 5 - Related Data Previous Rx's Medication Instructions Recorded Amoxicillin/Clavulanate [Augmentin] 875 mg PO BIDWM 14 Days #28 tablet 07/31/18 Doxycycline 100 mg PO BID 14 Days #28 capsule 07/31/18 Lactobacillus Acidophilus 1 each PO BID #30 capsule 07/31/18 [Acidophilus] Omeprazole [PriLOSEC] 40 mg PO DAILY #30 cap 07/31/18 amLODIPine [Norvasc] 10 mg PO DAILY tablet 07/31/18 Ondansetron ODT [Zofran ODT] 4 mg SL Q6HR #12 tab.rapdis 08/01/18 Allergies Allergy/AdvReac Type Severity Reaction Status Date / Time No Known Allergies Allergy Verified 07/27/18 10:39 Review of Systems: Pertinent positives and negatives reviewed in history of present illness. All other systems reviewed and are negative or normal. All systems ED: reviewed and negative except as stated. Review of Systems: As Per HPI Constitutional: Denies: fever, chills, weakness ENT ED: Denies: epistaxis Gastrointestinal: Reports: nausea, vomiting Past Medical History - Past Medical History Medical history: Reports: hypertension Psychiatric history: Reports: anxiety - Social History Smoking Status: Current every day smoker Smokeless Tobacco Status: No Alcohol use: Reports: none, occasionally Drug use: Reports: none Physical Exam - General Limitations: no limitations General appearance: alert, in no apparent distress - Head Head exam: atraumatic, normocephalic - ENT ENT exam: mucous membranes moist - Expanded ENT Exam Nose exam: other (Left nose has dressing with underlying nasal packing, small purulent drainage on dressing. Otherwise well-appearing. No area of evidence o f erythema or warmth surrounding tissue. No active hemorrhage.) Mouth exam: Present: normal external inspection, tongue normal - Chest Chest inspection: Present: normal inspection, symmetric chest wall rise. Absent: tenderness - Respiratory Respiratory exam: Present: normal lung sounds bilaterally. Absent: respiratory distress, wheezes, stridor, accessory muscle use - Cardiovascular Cardiovascular exam: Present: regular rate, normal rhythm, normal heart sounds - Abdominal Exam Abdominal exam: Present: soft, Non-Tender, normal bowel sounds. Absent: distention, guarding, rebound, rigidity - Extremities Exam Extremities exam: Present: normal inspection. Absent: pedal edema - Neurological Exam Neurological exam: Present: alert, oriented X3 - Psychiatric Psychiatric exam: Present: normal affect, normal mood - Skin Skin exam: Present: warm, dry, intact Course Vital Signs Temperature 98.5 F 08/01/18 16:11 Pulse Rate 82 08/01/18 16:11 Respiratory Rate 16 08/01/18 16:11 Blood Pressure 171/104 08/01/18 16:11 O2 Sat by Pulse Oximetry 100 08/01/18 16:11 Temperature 98.5 F 08/01/18 16:21 Pulse Rate 71 08/01/18 18:12 Respiratory Rate 16 08/01/18 18:12 Blood Pressure 146/94 08/01/18 18:12 O2 Sat by Pulse Oximetry 100 08/01/18 18:12 Oxygen Delivery Oxygen Delivery Room Air Medical Decision Making - [facility] Narrative Medical decision making narrative: 42-year-old male presented with nausea and vomiting inability to keep down his antibiotics. He was recently discharged due to his left nasal and facial cellulitis. On exam he is initially bent over holding his abdomen due to nausea but is afebrile and otherwise the wound appears to be well healing. He does not appear dehydrated but is hypertensive given his inability to keep down medications. GI cocktail and Zofran 8 mg given. He continued to experience vomiting thus initiated phenergan, ativan, and fluids. He continues to be cristina seated and unable to tolerate PO therefore will admit the patient for continued management as he is at high risk for return of his cellulitis. We will resume IV antibiotics including vancomycin and zosyn as there were no wound cultures with sensitivities. Patient agrees with and understands course of treatment plan including plan for admission. All questions answered. - Medical Records Medical records reviewed: Yes I reviewed the patient's medical records. - Lab Data Lab results reviewed: Yes I reviewed the patient's lab results. Result diagrams: 08/01/18 19:33 08/01/18 19:33 Lab Results 08/01/18 08/01/18 08/01/18 Range/Units 19:33 19:33 19:33 WBC 14.2 H (4.3-11.1) K/mcL RBC 4.45 (4.19-5.50) M/mcL Hgb 12.7 L (12.9-16.9) g/dL Hct 38.1 (37.5-50.1) % MCV 85.6 (83.0-100.0) fL MCH 28.5 (28.0-33.3) pg MCHC 33.3 (31.6-35.5) g/dL RDW 13.1 (11.5-14.5) % Plt Count 413 H (140-400) K/mcL MPV 9.0 L (9.4-12.4) fL Immature Gran % 0.6 (0-4) % Seg Neutrophils % 70.5 % Lymphocytes % 19.8 % Monocytes % 8.5 % Eosinophils % 0.4 % Basophils % 0.2 % Neutrophils # 10.0 H (1.6-8.9) K/mcL Lymphocytes # 2.8 (0.6-4.6) K/mcL Monocytes # 1.2 (0.0-1.3) K/mcL Eosinophils # 0.1 (0.0-0.6) K/mcL Basophils # 0.0 (0.0-0.2) K/mcL Sodium 136 (136-145) mEq/L Potassium 2.9 L (3.5-5.1) mEq/L Chloride 99 (98-107) mEq/L Carbon Dioxide 29 (23-29) mEq/L BUN 17 (6-20) mg/dL Creatinine 0.78 (0.70-1.30) mg/dL Est GFR ( Amer) > 60 (> 60) Est GFR (Non-Af Amer) > 60 (> 60) BUN/Creatinine Ratio 22 (6-26) Glucose 104 (70-105) mg/dL Calculated Osmolality 284 (280-300) Lactic Acid 0.7 (0.5-2.2) mmol/L Calcium 9.0 (8.6-10.3) mg/dL Magnesium 1.9 (1.6-2.6) mg/dL Attestation Statement - Attestation Attestation: I examined this patient and my medical decision-making was reviewed with the Resident Physician. I agree with the documented findings, disposition and treatment plan as described except to the extent set forth below. Findings consistent with facial cellulitis concurrently with nausea and vomiting. Even though the patient cannot tolerate by mouth at this time and he will not be able to take his antibiotics she will be admitted for antiemetics and IV antimicrobial therapy.
[2018-08-01] MEDS ORDERED: *HR* Promethazine 25 MG/ML VIAL IM ONE (18:24)
[2018-08-01] MEDS ORDERED: 0.9 % Sodium Chloride 1,000 ML IVC ONE (18:27)
[2018-08-01] MEDS ORDERED: *HR* LORazepam 2 MG/ML VIAL IVP ONE (18:29)
[2018-08-01] MEDS ORDERED: Piperacillin/Tazobactam 3.375 GM in 0.9 % Sodium Chloride Mini Bag 100 ML IVPB ONE (19:21)
[2018-08-01 19:49] LABS: Basophils % 0.2 %; Eosinophils # 0.1 K/mcL (0.0-0.6); Eosinophils % 0.4 %; Hematocrit 38.1 % (37.5-50.1); Hemoglobin 12.7 g/dL (12.9-16.9); Immature Granulocytes % 0.6 % (0-4); Lymphocytes # 2.8 K/mcL (0.6-4.6); Lymphocytes % 19.8 %; Mean Corpuscular HGB Conc 33.3 g/dL (31.6-35.5); Mean Corpuscular Hemoglobin 28.5 pg (28.0-33.3); Mean Corpuscular Volume 85.6 fL (83.0-100.0); Monocytes # 1.2 K/mcL (0.0-1.3); Monocytes % 8.5 %; Platelet Count 413 K/mcL (140-400); Red Blood Count 4.45 M/mcL (4.19-5.50); Red Cell Distribution Width 13.1 % (11.5-14.5); Segmented Neutrophils % 70.5 %
[2018-08-01 20:11] LABS: BUN/Creatinine Ratio 22 (6-26); Blood Urea Nitrogen 17 mg/dL (6-20); Carbon Dioxide 29 mEq/L (23-29); Chloride 99 mEq/L (98-107); Glucose 104 mg/dL (70-105); Osmolality,Calculated 284 (280-300); Potassium 2.9 mEq/L (3.5-5.1); Sodium 136 mEq/L (136-145); eGFR For Non-African Americans > 60 (> 60)
[2018-08-01 21:14] LABS: Magnesium 1.9 mg/dL (1.6-2.6)
[2018-08-01] MEDS: Potassium Chloride Elixir 20 MEQ/15 ML UDC PO STA (22:04)
[2018-08-01] MEDS ORDERED: Naloxone 0.4 MG/ML INJ IVP PRN (22:37)
[2018-08-01] MEDS: 0.9 % Sodium Chloride w KCl 40 MEQ/1,000 ML MLS IVC SCH (23:17)
--- NOTE | 2018-08-01 23:37 | Internal Med History&Physical ---
Date of Encounter: 08/01/18 Time of Encounter: 22:30 Internal Medicine - H&P: HPI Chief complaint: nausea/vomiting Admitted From: Emergency Dept Plans for Post Hospital Care: Home History of present illness: Mr. Crowley is a 42 year old male who was just discharged yesterday presents back to ER with protracted nausea and vomiting. He was admitted for facial cellulitis and had ENT consultation with wound incision and drainage. Since being home, he has had some significant nausea and vomiting which prompted him to come back to the ER. In the ER, he was seen, evaluated, and treated for his nausea and vomiting with Phenergan, Zofran, and Ativan. Because of his inability to keep oral fluid or fluids down, he was admitted to hospitalist service. Upon my assessment of the patient in the ER, he is quite somnolent and difficult to arouse. He does wake up and answer questions but falls right back to sleep. He is protecting his airway. His pupils are about 3 mm, reactive, and symmetrical. His significant other is present and confirms above history. I asked about his history of illicit drug use. He and she both state he uses heroin on a daily basis and often times other street drugs, including amphetamin es, marijuana, and Percocets. His last use of heroin was over a week ago prior to his admission in the hospital. I'm concerned about possible withdrawal from narcotics, but at the present time, given his somnolence, I will withhold further medications until he is more awake and alert. Regarding his facial cellulitis, his significant other states it is much better than his initial presentation. He has minimal redness, and he has packing of his nasal bridge where he had incision and drainage. Past Med Surg Social Fam HX - Past Medical History Attestation: Yes The following information was validated with the patient. Source: old records reviewed, obtained from family Medical history: hypertension Additional medical history: clean from IV drug use "for weeks" Psychiatric history: anxiety - Past Surgical History Surgical History: other Additional surgical history: left ankle sx. - Social History Smoking Status: Current every day smoker Smokeless Tobacco Status: No Alcohol use: none, occasionally Drug use: marijuana, methamphetamine, IV Drug Use, prescription drug abuse, other (heroin) Current living situation: Home Activity Level: Independent ambulation - Family History Father Hx Family Cardiac Disorders: Yes (HTN) Internal Medicine - H&P: Meds Amoxicillin/Clavulanate [Augmentin] 875 mg PO BIDWM 14 Days #28 tablet 07/31/18 [Rx] Doxycycline 100 mg PO BID 14 Days #28 capsule 07/31/18 [Rx] Lactobacillus Acidophilus [Acidophilus] 1 each PO BID #30 capsule 07/31/18 [Rx] Omeprazole [PriLOSEC] 40 mg PO DAILY #30 cap 07/31/18 [Rx] amLODIPine [Norvasc] 10 mg PO DAILY tablet 07/31/18 [Rx] Ondansetron ODT [Zofran ODT] 4 mg SL Q6HR #12 tab.rapdis 08/01/18 [Rx] 3 Allergy/AdvReac Type Severity Reaction Status Date / Time No Known Allergies Allergy Verified 07/27/18 10:39 Review of systems: per significant other; unobtainable from patient due to somnolence - Constitutional Constitutional: no chills, no fever(s), no night sweats - EENT Eyes: no change in vision Nose, mouth and throat: nasal congestion - Cardiovascular Cardiovascular ROS IM: no chest pain, no dyspnea - Respiratory Respiratory: no cough, no dyspnea - Gastrointestinal Gastrointestinal: nausea, vomiting, no abdominal pain, no diarrhea - Genitourinary Genitourinary ROS male: no dysuria - Integumentary Integumentary IM: erythema (face -- much improved) - Psychiatric Psychiatric: no anxiety, no behavioral changes - Allergic/Immunologic Allergic/Immunologic: no GI upset with certain foods - Constitutional Vitals: Temp Pulse Resp BP Pulse Ox 98.4 F 68 16 157/88 98 08/01/18 22:27 08/01/18 22:27 08/01/18 22:27 08/01/18 22:27 08/01/18 22:27 Exam: very somnolent; arousable, drifts right back to sleep; protecting airway - Head Head exam: Present: atraumatic, normal inspection - Eye Eye exam: Present: PERRL. Absent: scleral icterus - ENT ENT exam: Present: mucous membranes dry Additional comments: redness and swelling of nasal bridge with wound packing; minimal surrounding cellulitis of leandra-orbital area on left - Neck Neck exam general surgery: Present: full ROM, supple. Absent: tenderness, nuch al rigidity, thyromegaly - Respiratory Respiratory exam: Present: CTAB. Absent: chest wall tenderness, rales, respiratory distress, rhonchi, wheezes - Cardiovascular Cardiovascular exam: Present: RRR, +S1, +S2. Absent: diastolic murmur, systolic murmur - GI/Abdominal GI/Abdominal exam: Present: normal bowel sounds, soft. Absent: hepatomegaly, mass, splenomegaly, tenderness - Extremities Exam Extremities exam: Present: full ROM, normal capillary refill, warm, radial pulses palpable and symmetrical. Absent: calf tenderness, pedal edema, tenderness - Neurological Exam Neurological exam: Present: no focal deficits Additional comments: somnolent; responds to loud and painful stimuli; + 4 extremity purposeful movement - Psychiatric Additional comments: somnolent - Skin Skin exam: Present: dry, erythema (nasal bridge as above), intact, warm Internal Med - H&P Results - Labs CBC & Chem 7: 08/01/18 19:33 08/01/18 19:33 Labs: Short CBC 08/01/18 Range/Units 19:33 WBC 14.2 H (4.3-11.1) K/mcL Hgb 12.7 L (12.9-16.9) g/dL Hct 38.1 (37.5-50.1) % Plt Count 413 H (140-400) K/mcL Neutrophils # 10.0 H (1.6-8.9) K/mcL BMP 08/01/18 19:33 Sodium 136 Potassium 2.9 L Chloride 99 Carbon Dioxide 29 BUN 17 Creatinine 0.78 Glucose 104 Calcium 9.0 - Assessment and plan (1) Nausea & vomiting Current Visit: Yes Status: Acute Assessment and plan: 1. Will provide Zofran as needed; hold off on sedating meds for now due to hypersomnolence. 2. IVF hydration. 3. Concern for opiate withdrawal. May need cautious opiate use when awake if symptoms persist. Qualifiers: Vomiting type: unspecified Vomiting Intractability: intractable Qualified Code(s): R11.2 - Nausea with vomiting, unspecified (2) Polysubstance abuse Current Visit: Yes Status: Chronic Assessment and plan: 1. Will order urine drug screen. 2. Will monitor on telemetry and continuous pulse oximetry. 3. Monitor for signs and symptoms of opiate withdrawal. (3) Cellulitis and abscess of face Current Visit: Yes Status: Acute Assessment and plan: 1. Continue antibiotics as prescribed upon discharge. 2. Will place in contact precautions. 3. Will order MRSA screen. (4) DVT prophylaxis Current Visit: Yes Status: Acute Assessment and plan: 1. Heparin SQ.
[2018-08-02] MEDS: Potassium Chloride Elixir 20 MEQ/15 ML UDC PO STA (00:08)
[2018-08-02] MEDS: Ondansetron 4 MG/2 ML VIAL IVP PRN ×2 (03:26→12:18)
[2018-08-02 05:32] LABS: Basophils % 0.3 %; Eosinophils # 0.1 K/mcL (0.0-0.6); Eosinophils % 0.5 %; Hematocrit 37.5 % (37.5-50.1); Hemoglobin 12.2 g/dL (12.9-16.9); Immature Granulocytes % 0.8 % (0-4); Lymphocytes # 2.6 K/mcL (0.6-4.6); Lymphocytes % 17.3 %; Mean Corpuscular HGB Conc 32.5 g/dL (31.6-35.5); Mean Corpuscular Hemoglobin 28.1 pg (28.0-33.3); Mean Corpuscular Volume 86.4 fL (83.0-100.0); Mean Platelet Volume 9.4 fL (9.4-12.4); Monocytes # 1.4 K/mcL (0.0-1.3); Platelet Count 405 K/mcL (140-400); Red Blood Count 4.34 M/mcL (4.19-5.50); Red Cell Distribution Width 12.8 % (11.5-14.5); Segmented Neutrophils % 72.1 %
[2018-08-02] MEDS: Nicotine 21 MG PATCH.TD24 TD SCH ×2 (05:33→10:22)
[2018-08-02] MEDS: *HR* Heparin 5,000 UNIT/ML VIAL SQ SCH ×2 (05:36→18:12)
[2018-08-02 05:47] LABS: Alanine Aminotransferase 33 Units/L (7-52); Albumin 3.4 g/dL (3.5-5.7); Albumin/Globulin Ratio 1.2 (1.1-2.2); Alkaline Phosphatase 55 Units/L (34-104); Aspartate Amino Transferase 23 Units/L (13-39); BUN/Creatinine Ratio 19 (6-26); Bilirubin,Total 0.3 mg/dL (0.3-1.0); Blood Urea Nitrogen 14 mg/dL (6-20); Calcium 8.3 mg/dL (8.6-10.3); Carbon Dioxide 27 mEq/L (23-29); Chloride 103 mEq/L (98-107); Globulin 2.8 g/dL (2.4-3.5); Glucose 128 mg/dL (70-105); Magnesium 2.1 mg/dL (1.6-2.6); Osmolality,Calculated 286 (280-300); Potassium 3.1 mEq/L (3.5-5.1); Sodium 137 mEq/L (136-145); Total Protein 6.2 g/dL (6.4-8.9); eGFR For Non-African Americans > 60 (> 60)
[2018-08-02 08:42] LABS: Amphetamine Screen,Urine Negative ng/mL (Cutoff=1000); Barbiturate Screen,Urine Negative ng/mL (Cutoff=200); Benzodiazepines Screen,Urine Positive ng/mL (Cutoff=300); Cannabinoid Screen,Urine Negative ng/mL (Cutoff = 50)
[2018-08-02 08:43] LABS: Cocaine Screen,Urine Negative ng/mL (Cutoff= 300); Opiate Screen,Urine Positive ng/mL (Cutoff=300); Phencyclidine Screen,Urine Negative ng/mL (Cutoff=25)
[2018-08-02] MEDS: Lactobacillus 1 EACH CAP.SPRINK PO SCH ×2 (10:22→19:52)
[2018-08-02] MEDS: Doxycycline 100 MG CAPSULE PO SCH ×2 (10:22→19:52)
[2018-08-02] MEDS: 0.9 % Sodium Chloride w KCl 40 MEQ/1,000 ML MLS IVC SCH ×3 (10:23→23:31)
--- NOTE | 2018-08-02 10:27 | Internal Med Progress Note ---
Hospitalist Progress Note - Encounter Date of Encounter: 08/02/18 Time of Encounter: 10:24 - Subjective Interval History: Seen and examined at bedside today. Continue to report nasal pain at site of incision and drainage. No external draining but he is reporting that he feels like he is having sinus drainage. Nausea and vomiting is improving and he is able to tolerate a full diet this morning. - Exam Vitals: Temp Pulse Resp BP Pulse Ox 98.6 F 65 16 156/92 99 08/02/18 07:05 08/02/18 07:05 08/02/18 07:05 08/02/18 07:05 08/02/18 07:05 Exam: PHYSICAL EXAMINATION: GENERAL: The patient is a thin male who is alert and oriented 3. HEENT: Head is normocephalic and atraumatic. Extraocular muscles are intact. Pupils are equal, round, and reactive to light and accommodation. --The left side of the nasal bridge has noted redness and swelling however does not extend into the orbit. There is packing within the nasal bridge that is dry and intact. NECK: Supple. No carotid bruits. No lymphadenopathy or thyromegaly. LUNGS: Clear to auscultation B/L AP and L. HEART: Regular rate and rhythm, S1, S2 without murmur. ABDOMEN: Soft, nontender, and nondistended. Positive bowel sounds. No hepatosplenomegaly was noted. EXTREMITIES: Without any cyanosis, clubbing, rash, lesions or edema. NEUROLOGIC: Cranial nerves II through XII are grossly intact. PSYCHIATRIC: Appropriate affect, denies SI/HI, without agitation or anxiety SKIN: No ulceration or induration present. - Assessment and Plan (1) Cellulitis and abscess of face Current Visit: Yes Status: Acute Assessment and Plan: Leukocytosis with WBC 15.2 Does not appear toxic, hemodynamically stable, afebrile Continue amoxicillin and doxycycline which were started on discharge Will place in contact precautions. Will order MRSA screen. Monitor for restless SX of worsening infection Culture wounds and adjust antibiotics accordingly (2) Nausea & vomiting Current Visit: Yes Status: Resolved Assessment and Plan: Vomiting has resolved. He is continuing to report intermittent nausea however he was able tolerate a regular diet this morning Continue with IVF hydration, encourage oral intake as tolerated and will continue Zofran when necessary. (3) Polysubstance abuse Current Visit: Yes Status: Chronic Assessment and Plan: History of polysubstance abuse UDS positive for opiates and benzodiazepine Does not have any active S/SX of opiate withdrawal continue monitor (4) DVT prophylaxis Current Visit: Yes Status: Acute Assessment and Plan: Continue SQ heparin - Time Spent with Patient Total time spent is greater than 50% in coordination of care (as documented) at patient's floor/unit and/or counseling patient: less than 15 minutes Plan of Care Discussed with: patient Internal Medicine: Result - Labs CBC & Chem 7: 08/02/18 04:22 08/02/18 04:22 Labs: Short CBC 08/01/18 08/02/18 Range/Units 19:33 04:22 WBC 14.2 H 15.2 H (4.3-11.1) K/mcL Hgb 12.7 L 12.2 L (12.9-16.9) g/dL Hct 38.1 37.5 (37.5-50.1) % Plt Count 413 H 405 H (140-400) K/mcL Neutrophils # 10.0 H 11.0 H (1.6-8.9) K/mcL BMP 08/01/18 08/02/18 19:33 04:22 Sodium 136 137 Potassium 2.9 L 3.1 L Chloride 99 103 Carbon Dioxide 29 27 BUN 17 14 Creatinine 0.78 0.74 Glucose 104 128 H Calcium 9.0 8.3 L Liver Function 08/02/18 Range/Units 04:22 Total Bilirubin 0.3 (0.3-1.0) mg/dL AST 23 (13-39) Units/L ALT 33 (7-52) Units/L Alkaline Phosphatase 55 (34-104) Units/L Albumin 3.4 L (3.5-5.7) g/dL Consult Discharge Plan - Plan Referrals: Itzel Ross DO [Primary Care Provider] - (2) Nausea & vomiting Qualifiers: Vomiting type: unspecified Vomiting Intractability: intractable Qualified Code(s): R11.2 - Nausea with vomiting, unspecified
[2018-08-02] MEDS ORDERED: Potassium Chloride 40 MEQ, Lidocaine 1% 2 ML in D5% in Water 500 ML IVPB ONE (10:30)
[2018-08-02] MEDS: Acetaminophen 325 MG TABLET PO PRN (11:10)
[2018-08-02] MEDS ORDERED: Metoclopramide 10 MG/2 ML VIAL IVP ONE (15:07)
[2018-08-02] MEDS ORDERED: Melatonin 3 MG TABLET PO ONE (21:24)
[2018-08-03] MEDS: Ondansetron 4 MG/2 ML VIAL IVP PRN (00:52)
[2018-08-03] MEDS: *HR* Heparin 5,000 UNIT/ML VIAL SQ SCH (05:37)
[2018-08-03 08:37] VITALS: BP 152/89
[2018-08-03 09:57] LABS: Basophils % 0.3 %; Eosinophils # 0.2 K/mcL (0.0-0.6); Eosinophils % 1.3 %; Hematocrit 37.6 % (37.5-50.1); Hemoglobin 12.7 g/dL (12.9-16.9); Immature Granulocytes % 0.7 % (0-4); Lymphocytes # 2.6 K/mcL (0.6-4.6); Lymphocytes % 18.3 %; Mean Corpuscular HGB Conc 33.8 g/dL (31.6-35.5); Mean Corpuscular Volume 85.8 fL (83.0-100.0); Mean Platelet Volume 9.3 fL (9.4-12.4); Monocytes # 1.2 K/mcL (0.0-1.3); Monocytes % 8.1 %; Neutrophils # 10.3 K/mcL (1.6-8.9); Platelet Count 396 K/mcL (140-400); Red Blood Count 4.38 M/mcL (4.19-5.50); Segmented Neutrophils % 71.3 %
[2018-08-03] MEDS: 0.9 % Sodium Chloride w KCl 40 MEQ/1,000 ML MLS IVC SCH (10:13)
[2018-08-03] MEDS: Acetaminophen 325 MG TABLET PO PRN (10:14)
[2018-08-03] MEDS: Doxycycline 100 MG CAPSULE PO SCH (10:15)
[2018-08-03] MEDS: Lactobacillus 1 EACH CAP.SPRINK PO SCH (10:15)
[2018-08-03 10:16] LABS: BUN/Creatinine Ratio 13 (6-26); Blood Urea Nitrogen 10 mg/dL (6-20); Calcium 8.8 mg/dL (8.6-10.3); Carbon Dioxide 24 mEq/L (23-29); Chloride 104 mEq/L (98-107); Glucose 129 mg/dL (70-105); Osmolality,Calculated 283 (280-300); Potassium 3.4 mEq/L (3.5-5.1); Sodium 136 mEq/L (136-145); eGFR For Non-African Americans > 60 (> 60)
[2018-08-03] MEDS: Nicotine 21 MG PATCH.TD24 TD SCH (10:25)
--- NOTE | 2018-08-03 10:46 | Discharge Summary ---
- NOTES TO OUTPATIENT PROVIDER Notes to Outpatient Provider: f/u facial abscess to left nare; s/p I&D ENT. Mesalt packing ribbon in place and covered with 2x2. Home health assisting. RX for mupirocin to I&D site. Also Rx for amoxicillin and doxycycline for a total of 14 day course. Orders not resulted at time of discharge: Pending orders 08/01/18 22:37 MRSA Surveillance Screen [MOLMIC] Routine ECG 12 lead ECG [ECG] Routine 08/02/18 11:00 Culture,Wound [RM] Routine 08/04/18 04:00 BMP [Basic Metabolic Panel] AM 0400 Complete Blood Count [HEME] AM 0400 08/05/18 04:00 BMP [Basic Metabolic Panel] AM 0400 Complete Blood Count [HEME] AM 0400 08/06/18 04:00 BMP [Basic Metabolic Panel] AM 0400 Complete Blood Count [HEME] AM 0400 Date of Encounter: 08/03/18 Time of Encounter: 10:46 - Discharge Diagnosis (1) Cellulitis and abscess of face Priority: Primary Status: Acute (2) Nausea & vomiting Priority: Secondary Status: Resolved Qualifiers: Vomiting type: unspecified Vomiting Intractability: intractable Qualified Code(s): R11.2 - Nausea with vomiting, unspecified (3) Polysubstance abuse Priority: Secondary Status: Chronic (4) DVT prophylaxis Priority: Secondary Status: Acute Hospital course: Mr. Crowley is a 42 year old male was recently admitted and treated with incision and drainage for left nare abscess. The patient is a known amphetamine and marijuana and heroin user. He was discharged home in stable condition and r eturned with protected nausea and vomiting. This admission he has been treated with Zofran and bowel rest and nausea and vomiting improved. He is being sent home with a prescription for oral Zofran as been told to continue his 14 day course of both amoxicillin and doxycycline. The patient reports that he both of these prescriptions filled prior to discharge during last admission and that we will continue both. We will discharge with assistance of home health to assist with dressing changes. Discharge discussed with: patient, family, nurse, vendor management consultant - Time Spent with Patient Total time spent providing and/or coordinating discharge services: Less than 30 minutes - Discharge Medications Home Medications: Amoxicillin/Clavulanate [Augmentin] 875 mg PO BIDWM 14 Days #28 tablet 07/31/18 [Rx] Doxycycline 100 mg PO BID 14 Days #28 capsule 07/31/18 [Rx] Lactobacillus Acidophilus [Acidophilus] 1 each PO BID #30 capsule 07/31/18 [Rx] Omeprazole [PriLOSEC] 40 mg PO DAILY #30 cap 07/31/18 [Rx] amLODIPine [Norvasc] 10 mg PO DAILY tablet 07/31/18 [Rx] Ondansetron ODT [Zofran ODT] 4 mg SL Q6HR #12 tab.rapdis 08/01/18 [Rx] Allergies/Adverse Reactions: Allergy/AdvReac Type Severity Reaction Status Date / Time No Known Allergies Allergy Verified 07/27/18 10:39 Date of admission: 08/01/18 20:36 Primary care physician: Itzel Ross DO Discharging clinician: Gabriel Gastelum Anticipated date of discharge: 08/03/18 - Constitutional Vitals: Temp Pulse Resp BP Pulse Ox 98.3 F 71 14 152/89 98 08/03/18 08:36 08/03/18 08:36 08/03/18 08:36 08/03/18 08:36 08/03/18 08:36 General appearance: Present: A&O X 3 Exam: PHYSICAL EXAMINATION: GENERAL: The patient is a thin male who is alert and oriented 3. HEENT: Head is normocephalic and atraumatic. Extraocular muscles are intact. Pupils are equal, round, and reactive to light and accommodation. --The left side of the nasal bridge has noted redness and swelling however does not extend into the orbit; swelling improving today. There is packing within the nasal bridge that is dry and intact. NECK: Supple. No carotid bruits. No lymphadenopathy or thyromegaly. LUNGS: Clear to auscultation B/L AP and L. HEART: Regular rate and rhythm, S1, S2 without murmur. ABDOMEN: Soft, nontender, and nondistended. Positive bowel sounds. No hepatosplenomegaly was noted. EXTREMITIES: Without any cyanosis, clubbing, rash, lesions or edema. NEUROLOGIC: Cranial nerves II through XII are grossly intact. PSYCHIATRIC: Appropriate affect, denies SI/HI, without agitation or anxiety SKIN: No ulceration or induration present. - Patient Status Disposition: Home, Self-Care Condition: Fair Functional capacity at discharge: independent ambulation Overall status at discharge: patient is progressing back to baseline - Discharge Instructions Instructions: Cellulitis (DC) Follow Up With: Itzel Ross DO [Primary Care Provider] - Additional Instructions: cleanse open wounds with microcleanse, and pack open areas of left nasal sidewall with Mesalt packing ribbon (cut to half width), and cover with to be 2x2 dressing. Should continue packing until wound bed is clear of slough. Apply mupirocin ointment to I&D site on forehead BID, continue 7-10 days or until wound is completely closed. - Diet and Activity Activity: return to school once cleared by your PCP/specialist, resume usual activities as tolerated Diet: advance to your usual diet
--- NOTE | 2018-08-03 11:07 | Physician Discharge Referral ---
Home Health/Hosp Referral Info Transfer to: Home Health Provider in Charge Post Discharge: PCP - Diagnosis (1) Cellulitis and abscess of face Priority: Primary Status: Acute (2) Nausea & vomiting Priority: Secondary Status: Resolved (3) Polysubstance abuse Priority: Secondary Status: Chronic (4) DVT prophylaxis Priority: Secondary Status: Acute - Respiratory Orders Smoking Cessation: Smoking cessation has been advised. For more information, call the [place] Tobacco Quit Line at 3-338-WNHK-NOW. - Diet/Nutrition Diet/Nutrition Orders: Regular - Services Needed Following services are medically necessary services: Home Health Aide - Transfer Medications Home Medications: Amoxicillin/Clavulanate [Augmentin] 875 mg PO BIDWM 14 Days #28 tablet 07/31/18 [Rx] Doxycycline 100 mg PO BID 14 Days #28 capsule 07/31/18 [Rx] Lactobacillus Acidophilus [Acidophilus] 1 each PO BID #30 capsule 07/31/18 [Rx] Omeprazole [PriLOSEC] 40 mg PO DAILY #30 cap 07/31/18 [Rx] amLODIPine [Norvasc] 10 mg PO DAILY tablet 07/31/18 [Rx] Ondansetron ODT [Zofran ODT] 4 mg SL Q6HR #12 tab.rapdis 08/01/18 [Rx] Allergies/Adverse Reactions: Allergy/AdvReac Type Severity Reaction Status Date / Time No Known Allergies Allergy Verified 07/27/18 10:39 Certification: Further, I certify that my clinical findings support that this patient is homebound (i.e. absences from home require considerable and taxing effort and are for medical reasons or voodoo services or infrequently or short duration when for other reasons) because: Homebound Reason: Patient requires assistance of a person or device to safely leave home Attestation: My signature below is to certify that this patient is under my care and that I, or nurse practitioner, or a physician's tourist information assistant working with me, has a [id number] encounter with this patient.
--- NOTE | 2018-08-04 17:51 | Electrocardiograph Report ---
[address] [place] [address] Test Date: 2018-08-01 Pat Name: Fidel Crowley Department: EXAM1 Room: 3B43 Gender: M [employer]ician: : [id number] Requested By: Tonio Bender Order Number: [id number] Reading MD: Ericka Bolaños Measurements Intervals [place] Rate: 76 P: 81 DE: 127 QRS: -75 QRSD: 95 T: 73 QT: 419 QTc: 472 Interpretive Statements Sinus rhythm Left anterior fascicular block RV conduction delay Electronically Signed On 08-04-2018 17:49:42 EST by Ericka Bolaños
== END 2018-08-03 13:33 | disposition home or self-care (01) ==
LOC: EMEROOARM 16:06 → 3BNU 16:06
PROVIDERS: ADMIT Internal Medicine; ATTEND Internal Medicine